=== PATIENT | female | born 1950 | race African-American/Black ===

== ENCOUNTER 2020-06-20 15:29 | Inpatient (IN) ==
[2020-06-20 16:40] LABS: Basophils # 0.1 10*3/uL (0.0-0.2); Basophils % 0.4 % (0.0-0.8); Eosinophils # 0.1 10*3/uL (0.0-0.87); Eosinophils % 0.2 % (0.00-10.9); Hematocrit 48.2 VOL% (35.7-47.0); Hemoglobin 14.6 GM/DL (12.0-16.0); Immature Granulocytes % 1.1 %; Immature Granulocytes Absolute 0.29 #; Lymphocytes # 2.5 10*3/uL (1.4-4.0); Lymphocytes % 9.8 % (21.3-54.2); Mean Corpuscular HGB Conc 30.3 GM/DL (32-36); Mean Corpuscular Volume 78.5 FL (87-102); Monocytes % 3.7 % (1.7-12.7); NRBC # 0.05 10*3/uL; Neutrophils % 84.8 % (38.7-73.9); Platelet Count 117 T/CUMM (130-400); Red Blood Count 6.14 MC/CUMM (3.8-5.5); Red Cell Distribution Width 18.8 % (9.3-17.3); White Blood Count 25.5 T/CUMM (4-12)
[2020-06-20 16:58] LABS: Anisocytosis 1+; Band Neutrophils 1 % (0-10); Lymphocytes 13 % (20-55); Segmented Neutrophils 85 % (50-85); Total Cells Counted 100
[2020-06-20 16:59] LABS: Hypochromasia 1+; Platelet Estimate Adequate; Polychromasia Few
[2020-06-20 17:03] LABS: Alanine Aminotransferase 27 U/L (13-56); Albumin 1.9 G/DL (3.4-5.0); Alkaline Phosphatase 66 U/L (45-117); Aspartate Amino Transferase 39 U/L (0-37); Blood Urea Nitrogen 41 MG/DL (7-18); Calcium 10.3 MG/DL (8.5-10.1); Estimated Glom Filtration Rate 39 ML/MIN; Glucose 445 MG/DL (74-106); Osmolality,Calculated 344.6 MOS/KG (273-304); Total Protein 8.2 G/DL (6.4-8.3)
[2020-06-20 17:24] LABS: Ferritin 222.1 ng/ml (8-252)
[2020-06-20] MEDS ORDERED: SODIUM CHLORIDE 0.9% 2,250 ML IV ONE (17:47)
[2020-06-20] MEDS ORDERED: LEVOFLOXACIN INJ 750 MG in PREMIX 1 EACH IV SCH (18:00)
[2020-06-20 18:36] LABS: Bilirubin,Urine Negative (Negative); Blood, Urine Small mg/dL (Negative); Glucose,Urine (UA) >=500 mg/dL (Negative); Ketones,Urine Negative (Negative); Nitrite,Urine Negative (Negative); Protein,Urine 100 MG/DL; RBC,Urine 2 /HPF (0-4); Urine Appearance CLEAR (Clear); Urine Color Yellow (Yellow); Urine Specific Gravity 1.024 (1.001-1.035); WBC,Urine 1 /HPF (0-6)
[2020-06-20 20:17] LABS: ABG Base Excess 3.1 MMOL/L (-2.5-2.5); ABG HCO3 26.9 MMOL/L (20-26); ABG PCO2 25.4 MM HG (35-48); ABG PH 7.575 (7.35-7.45)
[2020-06-20] MEDS ORDERED: hydrALAZINE 20 MG/1 ML VIAL IV PRN (20:31)
[2020-06-20] MEDS ORDERED: ONDANSETRON 4 MG/2 ML VIAL IV PRN (20:31)
[2020-06-20] MEDS ORDERED: ALBUTEROL 2.5 MG/3 ML NEB RESP TX PRN (20:31)
[2020-06-20] MEDS ORDERED: GLUCAGON 1 MG VIAL IM PRN (20:52)
[2020-06-20] MEDS ORDERED: DEXTROSE 50% 25 GM/50 ML VIAL IV PRN (20:52)
[2020-06-20] MEDS ORDERED: LINEZOLID INJ 600 MG in PREMIX 1 EACH IV SCH (21:30)
[2020-06-20] MEDS ORDERED: VANCOMYCIN INJ 1,000 MG in SODIUM CHLORIDE 0.9% 250 ML IV STA (22:28)
[2020-06-20] MEDS ORDERED: CEFEPIME 1,000 MG VIAL ONE (22:38)
[2020-06-20] MEDS: CEFEPIME 2,000 MG in SODIUM CHLORIDE 0.9% 100 ML IV SCH (23:00)
[2020-06-21 05:03] LABS: ABG Base Excess 0.4 MMOL/L (-2.5-2.5); ABG HCO3 24.7 MMOL/L (20-26); ABG Oxygen Saturation 93.1 % (95-100); ABG PCO2 25.8 MM HG (35-48); ABG PH 7.532 (7.35-7.45); ABG PO2 63.5 MM HG (80-95); ABG TCO2 18.8 MMOL/L (23-27); Allen Test Positive
[2020-06-21 05:06] LABS: Basophils # 0.1 10*3/uL (0.0-0.2); Basophils % 0.4 % (0.0-0.8); Hematocrit 45.4 VOL% (35.7-47.0); Hemoglobin 13.8 GM/DL (12.0-16.0); Immature Granulocytes % 0.9 %; Lymphocytes # 2.5 10*3/uL (1.4-4.0); Lymphocytes % 11.1 % (21.3-54.2); Mean Corpuscular HGB Conc 30.4 GM/DL (32-36); Mean Corpuscular Volume 80.1 FL (87-102); Monocytes % 3.9 % (1.7-12.7); NRBC # 0.03 10*3/uL; Neutrophils % 83.7 % (38.7-73.9); Red Blood Count 5.67 MC/CUMM (3.8-5.5); Red Cell Distribution Width 19.1 % (9.3-17.3); White Blood Count 22.4 T/CUMM (4-12)
[2020-06-21 05:15] LABS: Platelet Count 128 T/CUMM (130-400)
[2020-06-21 05:25] LABS: Band Neutrophils 4 % (0-10); Lymphocytes 11 % (20-55); Segmented Neutrophils 77 % (50-85); Total Cells Counted 100
[2020-06-21 05:26] LABS: Hypochromasia 1+; Microcytosis 1+
[2020-06-21 05:27] LABS: Platelet Estimate Adequate
[2020-06-21 05:59] LABS: Albumin 1.6 G/DL (3.4-5.0); Bilirubin,Total 1.5 MG/DL (0.2-1.0); Calcium 9.2 MG/DL (8.5-10.1); Osmolality,Calculated 350.3 MOS/KG (273-304); Total Protein 7.3 G/DL (6.4-8.3)
[2020-06-21] MEDS ORDERED: ACETAMINOPHEN 325 MG/10.15 ML UDCUP PO STA ×2 (06:21→06:23)
[2020-06-21] MEDS ORDERED: ACETAMINOPHEN 325 MG TABLET ONE (06:27)
[2020-06-21] MEDS ORDERED: ACETAMINOPHEN 325 MG TABLET PER TUBE ONE (06:30)
[2020-06-21] MEDS: SODIUM CHLORIDE 0.45% 1,000 ML IV SCH ×3 (07:27→10:20)
[2020-06-21] MEDS: INSULIN REGULAR 100 UNIT/ML SUBCUT SCH ×4 (07:33→20:27)
[2020-06-21] MEDS: CEFEPIME 2,000 MG in SODIUM CHLORIDE 0.9% 100 ML IV SCH ×3 (09:05→23:13)
[2020-06-21] MEDS ORDERED: POLYETHYLENE GLYCOL POWDER 17 GM PACK PO PRN (09:42)
[2020-06-21] MEDS ORDERED: POLYETHYLENE GLYCOL POWDER 17 GM PACK PEG PRN (13:04)
[2020-06-21] MEDS ORDERED: ACETAMINOPHEN 500 MG TABLET PEG PRN (13:04)
[2020-06-21] MEDS: LACTATED RINGERS 1,000 ML IV SCH (13:10)
[2020-06-21] MEDS: methylPREDNISolone SOD SUC 40 MG/1 ML VIAL IV SCH ×2 (14:39→20:58)
[2020-06-21] MEDS: FAMOTIDINE 20 MG TABLET PER TUBE SCH (14:40)
[2020-06-21] MEDS: carvediloL 25 MG TABLET PEG SCH (19:33)
[2020-06-21] MEDS: LEVOFLOXACIN INJ 250 MG in PREMIX 1 EACH IV SCH (19:38)
[2020-06-21] MEDS: ENOXAPARIN 30 MG/0.3 ML SYRINGE SUBCUT SCH (20:58)
[2020-06-22] MEDS: INSULIN REGULAR 100 UNIT/ML SUBCUT SCH ×8 (00:13→23:32)
[2020-06-22] MEDS: LACTATED RINGERS 1,000 ML IV SCH ×4 (02:19→20:55)
[2020-06-22 03:42] LABS: ABG Base Excess -0.6 MMOL/L (-2.5-2.5); ABG HCO3 23.9 MMOL/L (20-26); ABG Oxygen Saturation 94.9 % (95-100); ABG PCO2 33.2 MM HG (35-48); ABG PH 7.445 (7.35-7.45); ABG PO2 74.2 MM HG (80-95); ABG TCO2 20.3 MMOL/L (23-27); Allen Test Positive
[2020-06-22 04:26] LABS: Basophils % 0.2 % (0.0-0.8); Hematocrit 41.3 VOL% (35.7-47.0); Hemoglobin 12.5 GM/DL (12.0-16.0); Immature Granulocytes % 1.2 %; Immature Granulocytes Absolute 0.24 #; Lymphocytes # 1.6 10*3/uL (1.4-4.0); Lymphocytes % 8.1 % (21.3-54.2); Mean Corpuscular HGB Conc 30.3 GM/DL (32-36); Mean Corpuscular Volume 80.2 FL (87-102); Monocytes % 2.4 % (1.7-12.7); NRBC # 0.03 10*3/uL; Neutrophils % 88.1 % (38.7-73.9); Red Blood Count 5.15 MC/CUMM (3.8-5.5); White Blood Count 19.4 T/CUMM (4-12)
[2020-06-22 04:31] LABS: Platelet Count 74 T/CUMM (130-400)
[2020-06-22 05:17] LABS: Band Neutrophils 2 % (0-10); Calcium 9.8 MG/DL (8.5-10.1); Lymphocytes 10 % (20-55); Segmented Neutrophils 87 % (50-85); Total Cells Counted 100
[2020-06-22 05:18] LABS: Microcytosis Slight; Platelet Estimate Decreased
[2020-06-22] MEDS: methylPREDNISolone SOD SUC 40 MG/1 ML VIAL IV SCH ×3 (06:19→20:45)
[2020-06-22] MEDS: CEFEPIME 2,000 MG in SODIUM CHLORIDE 0.9% 100 ML IV SCH ×3 (07:21→23:02)
[2020-06-22] MEDS ORDERED: DEXTROSE 50% 25 GM/50 ML VIAL IV PRN (07:23)
[2020-06-22] MEDS: CHOLECALCIFEROL 1,000 UNIT TABLET PEG SCH (08:00)
[2020-06-22] MEDS: carvediloL 25 MG TABLET PEG SCH ×2 (08:52→17:09)
[2020-06-22] MEDS: LEVOTHYROXINE 88 MCG TABLET PEG SCH (08:55)
[2020-06-22] MEDS: FAMOTIDINE 20 MG TABLET PER TUBE SCH (08:55)
[2020-06-22] MEDS: LEVOFLOXACIN INJ 250 MG in PREMIX 1 EACH IV SCH (18:02)
[2020-06-22] MEDS ORDERED: SODIUM CHLOR 0.9% KCL 40 MEQ 40 MEQ/1,000 ML BAG IV SCH (19:00)
[2020-06-22] MEDS: ENOXAPARIN 30 MG/0.3 ML SYRINGE SUBCUT SCH (20:44)
[2020-06-22] MEDS: SODIUM CHLOR 0.45% KCL 20 MEQ 20 MEQ/1,000 ML BAG IV SCH (20:54)
[2020-06-23] MEDS: INSULIN REGULAR 100 UNIT/ML SUBCUT SCH ×5 (03:28→22:03)
[2020-06-23 04:55] LABS: Basophils % 0.2 % (0.0-0.8); Eosinophils % 0.1 % (0.00-10.9); Hematocrit 37.8 VOL% (35.7-47.0); Hemoglobin 11.4 GM/DL (12.0-16.0); Immature Granulocytes Absolute 0.16 #; Lymphocytes % 6.2 % (21.3-54.2); Mean Corpuscular HGB Conc 30.2 GM/DL (32-36); Mean Corpuscular Volume 80.4 FL (87-102); Monocytes % 3.2 % (1.7-12.7); NRBC # 0.06 10*3/uL; Neutrophils % 89.3 % (38.7-73.9); Red Cell Distribution Width 17.7 % (9.3-17.3); White Blood Count 16.8 T/CUMM (4-12)
[2020-06-23 05:03] LABS: Calcium 9.4 MG/DL (8.5-10.1); Osmolality,Calculated 343.5 MOS/KG (273-304)
[2020-06-23 05:05] LABS: Platelet Count 82 T/CUMM (130-400)
[2020-06-23 05:06] LABS: Hypochromasia 1+; Lymphocytes 4 % (20-55); Microcytosis 1+; Nucleated Red Blood Cells 1 (0-5); Platelet Estimate Decreased; Segmented Neutrophils 95 % (50-85); Total Cells Counted 100
[2020-06-23] MEDS: methylPREDNISolone SOD SUC 40 MG/1 ML VIAL IV SCH ×3 (05:56→22:03)
[2020-06-23] MEDS: CEFEPIME 2,000 MG in SODIUM CHLORIDE 0.9% 100 ML IV SCH ×2 (06:15→17:02)
[2020-06-23] MEDS: INSULIN GLARGINE 100 UNIT/ML SUBCUT SCH (08:49)
[2020-06-23] MEDS: LEVOTHYROXINE 88 MCG TABLET PEG SCH (08:50)
[2020-06-23] MEDS: ENOXAPARIN 40 MG/0.4 ML SYRINGE SUBCUT SCH (08:50)
[2020-06-23] MEDS: FAMOTIDINE 20 MG TABLET PER TUBE SCH (08:50)
[2020-06-23] MEDS: POTASSIUM CHLORIDE 20 MEQ/15 ML UDCUP PER TUBE SCH ×3 (08:50→16:35)
[2020-06-23] MEDS: CHOLECALCIFEROL 1,000 UNIT TABLET PEG SCH (08:50)
[2020-06-23] MEDS: LEVOFLOXACIN INJ 500 MG in PREMIX 1 EACH IV SCH (08:50)
[2020-06-23] MEDS: carvediloL 25 MG TABLET PEG SCH ×2 (08:57→18:21)
[2020-06-23] MEDS: SODIUM CHLOR 0.45% KCL 20 MEQ 20 MEQ/1,000 ML BAG IV SCH ×2 (09:09→15:40)
[2020-06-23] MEDS: CEFEPIME 1,000 MG in SODIUM CHLORIDE 0.9% 100 ML IV SCH ×2 (17:02→22:04)
[2020-06-24] MEDS: SODIUM CHLOR 0.45% KCL 20 MEQ 20 MEQ/1,000 ML BAG IV SCH ×2 (01:35→10:41)
[2020-06-24] MEDS: INSULIN REGULAR 100 UNIT/ML SUBCUT SCH ×5 (01:35→18:24)
[2020-06-24 05:50] LABS: Basophils % 0.1 % (0.0-0.8); Hematocrit 37.3 VOL% (35.7-47.0); Hemoglobin 11.2 GM/DL (12.0-16.0); Immature Granulocytes % 0.9 %; Immature Granulocytes Absolute 0.14 #; Lymphocytes # 0.8 10*3/uL (1.4-4.0); Mean Corpuscular Volume 80.4 FL (87-102); Monocytes % 4.1 % (1.7-12.7); NRBC # 0.05 10*3/uL; Neutrophils % 89.9 % (38.7-73.9); Platelet Count 78 T/CUMM (130-400); Red Blood Count 4.64 MC/CUMM (3.8-5.5); Red Cell Distribution Width 17.6 % (9.3-17.3)
[2020-06-24 05:58] LABS: Calcium 9.4 MG/DL (8.5-10.1); Osmolality,Calculated 333.9 MOS/KG (273-304)
[2020-06-24 05:59] LABS: Calcium 9.2 MG/DL (8.5-10.1); Osmolality,Calculated 336.7 MOS/KG (273-304)
[2020-06-24 06:15] LABS: Band Neutrophils 2 % (0-10); Lymphocytes 3 % (20-55); Platelet Estimate Decreased; Segmented Neutrophils 89 % (50-85); Total Cells Counted 100
[2020-06-24 06:16] LABS: Hypochromasia 1+; Microcytosis 1+
[2020-06-24] MEDS: CEFEPIME 1,000 MG in SODIUM CHLORIDE 0.9% 100 ML IV SCH ×3 (06:38→21:06)
[2020-06-24] MEDS: ENOXAPARIN 40 MG/0.4 ML SYRINGE SUBCUT SCH (10:30)
[2020-06-24] MEDS: methylPREDNISolone SOD SUC 40 MG/1 ML VIAL IV SCH (10:30)
[2020-06-24] MEDS: FAMOTIDINE 20 MG TABLET PER TUBE SCH (10:31)
[2020-06-24] MEDS: CHOLECALCIFEROL 1,000 UNIT TABLET PEG SCH (10:31)
[2020-06-24] MEDS: LEVOTHYROXINE 88 MCG TABLET PEG SCH (10:31)
[2020-06-24] MEDS: carvediloL 25 MG TABLET PEG SCH ×2 (10:31→18:24)
[2020-06-24] MEDS: LEVOFLOXACIN INJ 500 MG in PREMIX 1 EACH IV SCH (10:33)
[2020-06-24] MEDS: INSULIN GLARGINE 100 UNIT/ML SUBCUT SCH (10:41)
[2020-06-24] MEDS ORDERED: DEXTROSE 5% 1,000 ML IV SCH (11:00)
[2020-06-25] MEDS: INSULIN REGULAR 100 UNIT/ML SUBCUT SCH ×4 (02:00→17:27)
[2020-06-25] MEDS: CEFEPIME 1,000 MG in SODIUM CHLORIDE 0.9% 100 ML IV SCH ×2 (04:04→09:51)
[2020-06-25 06:45] LABS: Basophils % 0.3 % (0.0-0.8); Eosinophils # 0.1 10*3/uL (0.0-0.87); Eosinophils % 0.5 % (0.00-10.9); Hematocrit 39.4 VOL% (35.7-47.0); Hemoglobin 11.8 GM/DL (12.0-16.0); Immature Granulocytes % 2.2 %; Immature Granulocytes Absolute 0.29 #; Lymphocytes # 1.2 10*3/uL (1.4-4.0); Lymphocytes % 9.4 % (21.3-54.2); Mean Corpuscular HGB Conc 29.9 GM/DL (32-36); Mean Corpuscular Volume 79.6 FL (87-102); NRBC # 0.08 10*3/uL; Neutrophils % 83.6 % (38.7-73.9); Platelet Count 45 T/CUMM (130-400); Red Blood Count 4.95 MC/CUMM (3.8-5.5); Red Cell Distribution Width 17.8 % (9.3-17.3); White Blood Count 13.2 T/CUMM (4-12)
[2020-06-25 06:57] LABS: Calcium 9.5 MG/DL (8.5-10.1)
[2020-06-25 07:11] LABS: Anisocytosis Slight; Band Neutrophils 8 % (0-10); Lymphocytes 14 % (20-55); Metamyelocytes 2 %; Myelocytes 1 %; Nucleated Red Blood Cells 2 (0-5); Platelet Estimate Decreased; Segmented Neutrophils 72 % (50-85); Total Cells Counted 100
[2020-06-25 07:12] LABS: Hypochromasia Slight
[2020-06-25] MEDS: INSULIN GLARGINE 100 UNIT/ML SUBCUT SCH (09:48)
[2020-06-25] MEDS: ENOXAPARIN 40 MG/0.4 ML SYRINGE SUBCUT SCH (09:49)
[2020-06-25] MEDS: predniSONE 20 MG TABLET PO SCH (09:50)
[2020-06-25] MEDS: CHOLECALCIFEROL 1,000 UNIT TABLET PEG SCH (09:50)
[2020-06-25] MEDS: carvediloL 25 MG TABLET PEG SCH ×2 (09:50→17:26)
[2020-06-25] MEDS: LEVOTHYROXINE 88 MCG TABLET PEG SCH (09:50)
[2020-06-25] MEDS: FAMOTIDINE 20 MG TABLET PER TUBE SCH (09:50)
[2020-06-25] MEDS: LEVOFLOXACIN INJ 500 MG in PREMIX 1 EACH IV SCH (12:44)
[2020-06-26] MEDS: INSULIN REGULAR 100 UNIT/ML SUBCUT SCH ×3 (00:09→11:45)
[2020-06-26 05:31] LABS: Basophils % 0.4 % (0.0-0.8); Eosinophils # 0.1 10*3/uL (0.0-0.87); Eosinophils % 0.7 % (0.00-10.9); Hematocrit 35.6 VOL% (35.7-47.0); Hemoglobin 10.8 GM/DL (12.0-16.0); Immature Granulocytes % 3.2 %; Immature Granulocytes Absolute 0.34 #; Lymphocytes # 1.7 10*3/uL (1.4-4.0); Lymphocytes % 15.6 % (21.3-54.2); Mean Corpuscular HGB Conc 30.3 GM/DL (32-36); Mean Corpuscular Volume 78.8 FL (87-102); Monocytes % 5.7 % (1.7-12.7); NRBC # 0.04 10*3/uL; Neutrophils % 74.4 % (38.7-73.9); Red Blood Count 4.52 MC/CUMM (3.8-5.5); Red Cell Distribution Width 16.9 % (9.3-17.3); White Blood Count 10.6 T/CUMM (4-12)
[2020-06-26 05:32] LABS: Platelet Count 74 T/CUMM (130-400)
[2020-06-26 05:48] LABS: Calcium 9.3 MG/DL (8.5-10.1); Osmolality,Calculated 309.3 MOS/KG (273-304)
[2020-06-26 06:03] LABS: Band Neutrophils 2 % (0-10); Lymphocytes 12 % (20-55); Metamyelocytes 1 %; Myelocytes 2 %; Platelet Estimate Decreased; Segmented Neutrophils 79 % (50-85); Total Cells Counted 100
[2020-06-26 06:04] LABS: Hypochromasia Slight; Microcytosis 1+
[2020-06-26] MEDS: ENOXAPARIN 40 MG/0.4 ML SYRINGE SUBCUT SCH (08:48)
[2020-06-26] MEDS: INSULIN GLARGINE 100 UNIT/ML SUBCUT SCH (08:49)
[2020-06-26] MEDS: carvediloL 25 MG TABLET PEG SCH (08:49)
[2020-06-26] MEDS: predniSONE 20 MG TABLET PO SCH (08:49)
[2020-06-26] MEDS: LEVOTHYROXINE 88 MCG TABLET PEG SCH (08:49)
[2020-06-26] MEDS: CHOLECALCIFEROL 1,000 UNIT TABLET PEG SCH (08:49)
[2020-06-26] MEDS: FAMOTIDINE 20 MG TABLET PER TUBE SCH (08:49)
[2020-06-26 11:34] VITALS: BP 122/56
== END 2020-06-26 15:09 | DRG 871 ==
LOC: EDBD → EDUNIT# → N.ED 15:29 → N.EDINP 20:31 → SUATTDRO 20:31 → N.ICU 06-22 11:50 → N.5E 06-23 15:20
PROVIDERS: ADMIT Internal Medicine; ATTEND Internal Medicine

== ENCOUNTER 2020-07-06 03:47 | Inpatient (IN) ==
[2020-07-06] MEDS ORDERED: ROCURONIUM 100 MG/10 ML VIAL IV STA (03:54)
[2020-07-06] MEDS ORDERED: ETOMIDATE 20 MG/10 ML VIAL IV STA (03:54)
[2020-07-06] MEDS ORDERED: NOREPINEPHRINE 4 MG/4 ML VIAL IV ONE ×3 (03:59→17:07)
[2020-07-06] MEDS: NOREPINEPHRINE 8 MG in SODIUM CHLORIDE 0.9% 242 ML IV PRN (04:10)
[2020-07-06] MEDS ORDERED: SODIUM CHLORIDE 0.9% 2,000 ML IV STA (04:19)
[2020-07-06] MEDS ORDERED: SODIUM CHLORIDE 0.9% 1,000 ML IV STA ×2 (04:19→06:33)
[2020-07-06] MEDS ORDERED: LEVOFLOXACIN INJ 500 MG in PREMIX 1 EACH IV STA (04:19)
[2020-07-06 04:50] LABS: Alanine Aminotransferase 26 U/L (13-56); Albumin 1.3 G/DL (3.4-5.0); Alkaline Phosphatase 54 U/L (45-117); Aspartate Amino Transferase 19 U/L (0-37); Bacteria,Urine Occasional /HPF (Few); Bilirubin,Urine Negative (Negative); Blood Urea Nitrogen 41 MG/DL (7-18); Blood, Urine Negative (Negative); Calcium 7.7 MG/DL (8.5-10.1); Carbon Dioxide 24 MMOL/L (21-32); Estimated Glom Filtration Rate 64 ML/MIN; Glucose 353 MG/DL (74-106); Glucose,Urine (UA) >=500 mg/dL (Negative); Ketones,Urine Negative (Negative); Mucus,Urine Occasional /LPF (Occasional); Nitrite,Urine Negative (Negative); Osmolality,Calculated 324.7 MOS/KG (273-304); Protein,Urine 30 MG/DL; RBC,Urine 14 /HPF (0-4); Sodium 152 MMOL/L (136-145); Squamous Epithelial Cell,Urine Occasional /HPF (0-10); Total Protein 5.3 G/DL (6.4-8.3); Urine Appearance CLEAR (Clear); Urine Color Yellow (Yellow); WBC,Urine 1 /HPF (0-6)
[2020-07-06 04:52] LABS: ABG Base Excess -3.1 MMOL/L (-2.5-2.5); ABG HCO3 23.4 MMOL/L (20-26); ABG Oxygen Saturation 94.3 % (95-100); ABG PCO2 47.9 MM HG (35-48); ABG PH 7.306 (7.35-7.45); ABG PO2 83.5 MM HG (80-95); ABG TCO2 24.8 MMOL/L (23-27)
[2020-07-06] MEDS ORDERED: VANCOMYCIN INJ 1,000 MG in SODIUM CHLORIDE 0.9% 250 ML IV STA (05:06)
[2020-07-06 05:09] LABS: Basophils % 0.2 % (0.0-0.8); Eosinophils % 0.2 % (0.00-10.9); Hematocrit 36.5 VOL% (35.7-47.0); Hemoglobin 10.7 GM/DL (12.0-16.0); Immature Granulocytes % 0.9 %; Lymphocytes # 1.2 10*3/uL (1.4-4.0); Lymphocytes % 10.7 % (21.3-54.2); Mean Corpuscular HGB Conc 29.3 GM/DL (32-36); Mean Corpuscular Volume 83.3 FL (87-102); Monocytes % 5.5 % (1.7-12.7); NRBC # 0.07 10*3/uL; Neutrophils % 82.5 % (38.7-73.9); Platelet Count 72 T/CUMM (130-400); Red Blood Count 4.38 MC/CUMM (3.8-5.5); Red Cell Distribution Width 19.2 % (9.3-17.3); White Blood Count 11.5 T/CUMM (4-12)
[2020-07-06 05:35] LABS: Band Neutrophils 12 % (0-10); Eosinophils 1 % (0-10); Lymphocytes 5 % (20-55); Metamyelocytes 4 %; Myelocytes 1 %; Nucleated Red Blood Cells 2 (0-5); Segmented Neutrophils 74 % (50-85); Total Cells Counted 100
[2020-07-06 05:36] LABS: Hypochromasia 1+; Microcytosis 1+; Polychromasia Slight
[2020-07-06 05:37] LABS: Platelet Estimate Decreased
[2020-07-06] MEDS ORDERED: NICOTINE 21 MG/24 HR PATCH TRANSDERM PRN (05:41)
[2020-07-06] MEDS ORDERED: ONDANSETRON 4 MG/2 ML VIAL IV PRN (05:41)
[2020-07-06] MEDS ORDERED: ALBUTEROL 2.5 MG/3 ML NEB RESP TX PRN (05:41)
[2020-07-06] MEDS ORDERED: GLUCAGON 1 MG VIAL IM PRN (05:46)
[2020-07-06] MEDS ORDERED: DEXTROSE 50% 25 GM/50 ML VIAL IV PRN (05:46)
[2020-07-06] MEDS ORDERED: MIDAZOLAM 2 MG/2 ML VIAL ONE (06:01)
[2020-07-06] MEDS ORDERED: MIDAZOLAM 2 MG/2 ML VIAL IV STA (06:03)
[2020-07-06] MEDS: PANTOPRAZOLE 40 MG VIAL IV SCH (06:22)
[2020-07-06] MEDS: INSULIN REGULAR 100 UNIT/ML SUBCUT SCH ×3 (06:22→20:58)
[2020-07-06] MEDS: MIDAZOLAM 100 MG in SODIUM CHLORIDE 0.9% 80 ML IV PRN (06:27)
[2020-07-06] MEDS: SODIUM CHLORIDE 0.45% 1,000 ML IV SCH ×2 (08:00→20:11)
[2020-07-06] MEDS: ENOXAPARIN 40 MG/0.4 ML SYRINGE SUBCUT SCH (09:00)
[2020-07-06] MEDS: VANCOMYCIN INJ 1,250 MG in SODIUM CHLORIDE 0.9% 250 ML IV SCH ×2 (09:00→22:13)
[2020-07-06 12:45] LABS: Albumin 1.3 G/DL (3.4-5.0); Calcium 8.1 MG/DL (8.5-10.1); Osmolality,Calculated 333.2 MOS/KG (273-304); Potassium 3.8 MMOL/L (3.5-5.1); Total Protein 5.5 G/DL (6.4-8.3)
[2020-07-06] MEDS ORDERED: SODIUM CHLORIDE 0.9% 500 ML IV ONE (14:05)
[2020-07-06] MEDS ORDERED: SODIUM CHLORIDE 0.9% 1,000 ML IV ONE (20:42)
[2020-07-07] MEDS: INSULIN REGULAR 100 UNIT/ML SUBCUT SCH ×5 (00:31→18:00)
[2020-07-07] MEDS: NOREPINEPHRINE 8 MG in SODIUM CHLORIDE 0.9% 242 ML IV PRN ×4 (01:36→23:17)
[2020-07-07 04:21] LABS: ABG Base Excess -2.5 MMOL/L (-2.5-2.5); ABG HCO3 22.3 MMOL/L (20-26); ABG Oxygen Saturation 99.7 % (95-100); ABG PH 7.445 (7.35-7.45); ABG TCO2 18.5 MMOL/L (23-27)
[2020-07-07 04:29] LABS: Basophils % 0.3 % (0.0-0.8); Eosinophils % 0.2 % (0.00-10.9); Hematocrit 31.9 VOL% (35.7-47.0); Hemoglobin 9.4 GM/DL (12.0-16.0); Immature Granulocytes % 0.5 %; Immature Granulocytes Absolute 0.06 #; Lymphocytes # 1.8 10*3/uL (1.4-4.0); Mean Corpuscular HGB Conc 29.5 GM/DL (32-36); Mean Corpuscular Volume 83.5 FL (87-102); Mean Platelet Volume 13.5 FL (9.6-12.0); Monocytes % 3.4 % (1.7-12.7); NRBC # 0.02 10*3/uL; Neutrophils % 81.6 % (38.7-73.9); Platelet Count 63 T/CUMM (130-400); Red Blood Count 3.82 MC/CUMM (3.8-5.5); Red Cell Distribution Width 18.6 % (9.3-17.3); White Blood Count 12.8 T/CUMM (4-12)
[2020-07-07 04:45] LABS: Albumin 1.2 G/DL (3.4-5.0); Bilirubin,Total 0.9 MG/DL (0.2-1.0); Calcium 8.4 MG/DL (8.5-10.1); Potassium 3.1 MMOL/L (3.5-5.1); Total Protein 5.5 G/DL (6.4-8.3)
[2020-07-07 05:02] LABS: Band Neutrophils 11 % (0-10); Hypochromasia 1+; Lymphocytes 19 % (20-55); Metamyelocytes 2 %; Myelocytes 2 %; Nucleated Red Blood Cells 3 (0-5); Segmented Neutrophils 63 % (50-85); Total Cells Counted 100
[2020-07-07 05:03] LABS: Microcytosis 1+; Platelet Estimate Decreased; Polychromasia Slight
[2020-07-07] MEDS: POTASSIUM CHLORIDE RIDER 20 MEQ in PREMIX 1 EACH IV PRN ×2 (05:24→05:54)
[2020-07-07] MEDS: PANTOPRAZOLE 40 MG VIAL IV SCH (05:45)
[2020-07-07] MEDS: SODIUM CHLORIDE 0.45% 1,000 ML IV SCH ×2 (05:47→16:29)
[2020-07-07] MEDS: LEVOFLOXACIN INJ 500 MG in PREMIX 1 EACH IV SCH (05:50)
[2020-07-07] MEDS: VANCOMYCIN INJ 1,250 MG in SODIUM CHLORIDE 0.9% 250 ML IV SCH ×2 (08:11→21:14)
[2020-07-07] MEDS: ENOXAPARIN 40 MG/0.4 ML SYRINGE SUBCUT SCH (08:11)
[2020-07-07] MEDS ORDERED: DEXTROSE 50% 25 GM/50 ML VIAL IV PRN (09:55)
[2020-07-07] MEDS ORDERED: GLUCAGON 1 MG VIAL IM PRN (09:55)
[2020-07-07] MEDS: POTASSIUM CHLORIDE 20 MEQ/15 ML UDCUP PER TUBE SCH ×3 (11:01→18:04)
[2020-07-08] MEDS: INSULIN REGULAR 100 UNIT/ML SUBCUT SCH ×5 (00:07→23:54)
[2020-07-08] MEDS: SODIUM CHLORIDE 0.45% 1,000 ML IV SCH ×6 (03:06→21:34)
[2020-07-08 03:31] LABS: ABG HCO3 20.2 MMOL/L (20-26); ABG PCO2 27.6 MM HG (35-48); ABG PH 7.432 (7.35-7.45); ABG PO2 93.1 MM HG (80-95); ABG TCO2 17.1 MMOL/L (23-27)
[2020-07-08] MEDS: NOREPINEPHRINE 8 MG in SODIUM CHLORIDE 0.9% 242 ML IV PRN ×2 (05:01→17:36)
[2020-07-08 05:25] LABS: Basophils % 0.2 % (0.0-0.8); Eosinophils % 0.1 % (0.00-10.9); Hematocrit 27.7 VOL% (35.7-47.0); Hemoglobin 8.3 GM/DL (12.0-16.0); Immature Granulocytes % 1.1 %; Immature Granulocytes Absolute 0.12 #; Lymphocytes # 0.9 10*3/uL (1.4-4.0); Lymphocytes % 8.2 % (21.3-54.2); Mean Corpuscular Volume 82.7 FL (87-102); Monocytes % 3.3 % (1.7-12.7); NRBC # 0.05 10*3/uL; Neutrophils % 87.1 % (38.7-73.9); Platelet Count 60 T/CUMM (130-400); Red Blood Count 3.35 MC/CUMM (3.8-5.5); Red Cell Distribution Width 18.6 % (9.3-17.3); White Blood Count 10.6 T/CUMM (4-12)
[2020-07-08 05:38] LABS: Calcium 8.7 MG/DL (8.5-10.1); Osmolality,Calculated 309.6 MOS/KG (273-304); Potassium 3.3 MMOL/L (3.5-5.1)
[2020-07-08 05:44] LABS: Band Neutrophils 2 % (0-10); Hypochromasia 1+; Lymphocytes 6 % (20-55); Microcytosis 1+; Platelet Estimate Decreased; Segmented Neutrophils 91 % (50-85); Total Cells Counted 100
[2020-07-08] MEDS: PANTOPRAZOLE 40 MG VIAL IV SCH (05:47)
[2020-07-08] MEDS: LEVOFLOXACIN INJ 500 MG in PREMIX 1 EACH IV SCH (05:50)
[2020-07-08] MEDS: POTASSIUM CHLORIDE RIDER 20 MEQ in PREMIX 1 EACH IV PRN ×2 (06:11→06:45)
[2020-07-08] MEDS: ENOXAPARIN 40 MG/0.4 ML SYRINGE SUBCUT SCH (08:28)
[2020-07-08] MEDS: VANCOMYCIN INJ 1,250 MG in SODIUM CHLORIDE 0.9% 250 ML IV SCH ×2 (08:31→21:33)
[2020-07-08] MEDS: MIDAZOLAM 100 MG in SODIUM CHLORIDE 0.9% 80 ML IV PRN (12:30)
[2020-07-08] MEDS ORDERED: SODIUM CHLORIDE 0.45% 500 ML IV ONE (17:24)
[2020-07-09] MEDS: NOREPINEPHRINE 8 MG in SODIUM CHLORIDE 0.9% 242 ML IV PRN ×2 (01:33→08:31)
[2020-07-09 04:46] LABS: Allen Test Positive; Pt O2 Delivery Device Ventilator
[2020-07-09 04:50] LABS: ABG Base Excess -7.7 MMOL/L (-2.5-2.5); ABG HCO3 18.1 MMOL/L (20-26); ABG Oxygen Saturation 95.8 % (95-100); ABG PCO2 24.1 MM HG (35-48); ABG PH 7.419 (7.35-7.45); ABG PO2 75.8 MM HG (80-95); ABG TCO2 14.3 MMOL/L (23-27)
[2020-07-09 05:09] LABS: Basophils % 0.2 % (0.0-0.8); Eosinophils % 0.2 % (0.00-10.9); Hemoglobin 7.2 GM/DL (12.0-16.0); Immature Granulocytes % 0.9 %; Immature Granulocytes Absolute 0.05 #; Lymphocytes # 0.6 10*3/uL (1.4-4.0); Lymphocytes % 10.8 % (21.3-54.2); Mean Corpuscular Volume 81.9 FL (87-102); NRBC # 0.13 10*3/uL; Neutrophils % 83.9 % (38.7-73.9); Red Blood Count 2.93 MC/CUMM (3.8-5.5); Red Cell Distribution Width 18.2 % (9.3-17.3); White Blood Count 5.8 T/CUMM (4-12)
[2020-07-09 05:10] LABS: Platelet Count 51 T/CUMM (130-400)
[2020-07-09 05:26] LABS: Calcium 8.7 MG/DL (8.5-10.1); Osmolality,Calculated 302.4 MOS/KG (273-304); Potassium 3.6 MMOL/L (3.5-5.1)
[2020-07-09 05:29] LABS: Band Neutrophils 5 % (0-10); Hypochromasia 1+; Lymphocytes 16 % (20-55); Metamyelocytes 1 %; Microcytosis 1+; Nucleated Red Blood Cells 4 (0-5); Segmented Neutrophils 73 % (50-85); Total Cells Counted 100
[2020-07-09 05:30] LABS: Platelet Estimate Decreased
[2020-07-09] MEDS: SODIUM CHLORIDE 0.45% 1,000 ML IV SCH ×2 (05:57→09:43)
[2020-07-09] MEDS: PANTOPRAZOLE 40 MG VIAL IV SCH (06:25)
[2020-07-09] MEDS: INSULIN REGULAR 100 UNIT/ML SUBCUT SCH ×4 (06:27→23:53)
[2020-07-09] MEDS: LEVOFLOXACIN INJ 500 MG in PREMIX 1 EACH IV SCH (06:27)
[2020-07-09] MEDS: POTASSIUM CHLORIDE RIDER 20 MEQ in PREMIX 1 EACH IV PRN (06:28)
[2020-07-09] MEDS ORDERED: SODIUM CHLORIDE 0.9% 1,000 ML IV PRN (09:16)
[2020-07-09] MEDS ORDERED: SODIUM CHLORIDE 0.45% 1,000 ML IV ONE (09:25)
[2020-07-09] MEDS ORDERED: SODIUM BICARBONATE 50 MEQ/50 ML VIAL IV ONE (09:30)
[2020-07-09] MEDS: ENOXAPARIN 40 MG/0.4 ML SYRINGE SUBCUT SCH (09:59)
[2020-07-09] MEDS: VANCOMYCIN INJ 1,250 MG in SODIUM CHLORIDE 0.9% 250 ML IV SCH ×2 (09:59→20:48)
[2020-07-09] MEDS: INSULIN GLARGINE 100 UNIT/ML SUBCUT SCH ×2 (09:59→20:48)
[2020-07-09] MEDS: FAMOTIDINE 20 MG/2 ML VIAL IV SCH ×2 (10:00→20:45)
[2020-07-09] MEDS: NOREPINEPHRINE 16 MG in SODIUM CHLORIDE 0.9% 234 ML IV PRN ×2 (12:53→22:07)
[2020-07-09] MEDS ORDERED: FUROSEMIDE 40 MG/4 ML VIAL IV ONE (14:40)
[2020-07-09] MEDS: carvediloL 12.5 MG TABLET PO SCH ×2 (14:54→22:43)
[2020-07-09] MEDS ORDERED: cefTRIAXone 1,000 MG in SYRINGE 1 EACH IV SCH (18:00)
[2020-07-10 04:18] LABS: Allen Test Positive; Pt O2 Delivery Device Ventilator
[2020-07-10 04:19] LABS: ABG Base Excess -8.7 MMOL/L (-2.5-2.5); ABG HCO3 17.4 MMOL/L (20-26); ABG Oxygen Saturation 98.3 % (95-100); ABG PCO2 28.9 MM HG (35-48); ABG PH 7.347 (7.35-7.45); ABG TCO2 14.5 MMOL/L (23-27)
[2020-07-10 04:24] LABS: Basophils % 0.1 % (0.0-0.8); Eosinophils % 0.1 % (0.00-10.9); Hematocrit 31.4 VOL% (35.7-47.0); Lymphocytes # 0.5 10*3/uL (1.4-4.0); Lymphocytes % 5.1 % (21.3-54.2); Mean Corpuscular HGB Conc 31.2 GM/DL (32-36); Mean Corpuscular Volume 84.2 FL (87-102); Monocytes % 2.1 % (1.7-12.7); NRBC # 0.13 10*3/uL; Neutrophils % 91.6 % (38.7-73.9); Red Cell Distribution Width 18.6 % (9.3-17.3)
[2020-07-10 04:34] LABS: Platelet Count 38 T/CUMM (130-400)
[2020-07-10 04:35] LABS: Hemoglobin 9.8 GM/DL (12.0-16.0); Red Blood Count 3.73 MC/CUMM (3.8-5.5); White Blood Count 10.3 T/CUMM (4-12)
[2020-07-10 04:42] LABS: Calcium 8.8 MG/DL (8.5-10.1); Osmolality,Calculated 304.4 MOS/KG (273-304); Potassium 3.2 MMOL/L (3.5-5.1)
[2020-07-10 04:46] LABS: Band Neutrophils 7 % (0-10); Lymphocytes 8 % (20-55); Metamyelocytes 1 %; Myelocytes 2 %; Nucleated Red Blood Cells 4 (0-5); Segmented Neutrophils 76 % (50-85)
[2020-07-10 04:47] LABS: Hypochromasia Slight; Microcytosis Slight; Platelet Estimate Decreased; Total Cells Counted 100
[2020-07-10] MEDS: INSULIN REGULAR 100 UNIT/ML SUBCUT SCH ×3 (05:28→17:52)
[2020-07-10] MEDS: POTASSIUM CHLORIDE RIDER 20 MEQ in PREMIX 1 EACH IV PRN ×3 (05:28→12:31)
[2020-07-10] MEDS: NOREPINEPHRINE 16 MG in SODIUM CHLORIDE 0.9% 234 ML IV PRN ×2 (06:21→16:51)
[2020-07-10] MEDS ORDERED: SODIUM BICARBONATE 50 MEQ/50 ML VIAL IV ONE (10:08)
[2020-07-10] MEDS: carvediloL 12.5 MG TABLET PO SCH ×2 (10:25→21:45)
[2020-07-10] MEDS: FONDAPARINUX 2.5 MG/0.5 ML SYRINGE SUBCUT SCH (10:33)
[2020-07-10] MEDS: FAMOTIDINE 20 MG/2 ML VIAL IV SCH ×2 (10:34→21:50)
[2020-07-10] MEDS: INSULIN GLARGINE 100 UNIT/ML SUBCUT SCH ×2 (10:36→21:09)
[2020-07-10] MEDS: VANCOMYCIN INJ 1,250 MG in SODIUM CHLORIDE 0.9% 250 ML IV SCH ×2 (10:39→22:08)
[2020-07-10] MEDS: SODIUM BICARB INJ 150 MEQ in STERILE WATER INJ 850 ML IV SCH (11:35)
[2020-07-10] MEDS ORDERED: LACTATED RINGERS 1,000 ML IV ONE (14:00)
[2020-07-10] MEDS: metroNIDAZOLE INJ 500 MG in PREMIX 1 EACH IV SCH ×2 (15:24→21:45)
[2020-07-10] MEDS: AZITHROMYCIN INJ 500 MG in SODIUM CHLORIDE 0.9% 250 ML IV SCH (15:24)
[2020-07-10 22:03] LABS: Albumin 0.8 G/DL (3.4-5.0); Bilirubin,Total 2.4 MG/DL (0.2-1.0); Calcium 9.2 MG/DL (8.5-10.1); Osmolality,Calculated 306.3 MOS/KG (273-304); Potassium 4.1 MMOL/L (3.5-5.1); Total Protein 5.2 G/DL (6.4-8.3)
[2020-07-11] MEDS: INSULIN REGULAR 100 UNIT/ML SUBCUT SCH ×4 (01:01→18:19)
[2020-07-11 03:42] LABS: ABG Base Excess -5.3 MMOL/L (-2.5-2.5); ABG HCO3 17.7 MMOL/L (20-26); ABG Oxygen Saturation 93.5 % (95-100); ABG PCO2 26.9 MM HG (35-48); ABG PH 7.437 (7.35-7.45); ABG PO2 65.2 MM HG (80-95); ABG TCO2 18.6 MMOL/L (23-27); Allen Test Positive; Pt O2 Delivery Device Ventilator
[2020-07-11 04:00] LABS: Basophils # 0.1 10*3/uL (0.0-0.2); Basophils % 0.6 % (0.0-0.8); Eosinophils % 0.2 % (0.00-10.9); Hematocrit 30.6 VOL% (35.7-47.0); Hemoglobin 9.7 GM/DL (12.0-16.0); Immature Granulocytes % 2.2 %; Immature Granulocytes Absolute 0.28 #; Lymphocytes # 0.7 10*3/uL (1.4-4.0); Lymphocytes % 5.4 % (21.3-54.2); Mean Corpuscular HGB Conc 31.7 GM/DL (32-36); Mean Corpuscular Volume 83.4 FL (87-102); Monocytes % 1.5 % (1.7-12.7); NRBC # 0.16 10*3/uL; Neutrophils % 90.1 % (38.7-73.9); Red Blood Count 3.67 MC/CUMM (3.8-5.5); Red Cell Distribution Width 19.4 % (9.3-17.3); White Blood Count 12.7 T/CUMM (4-12)
[2020-07-11] MEDS: NOREPINEPHRINE 16 MG in SODIUM CHLORIDE 0.9% 234 ML IV PRN ×2 (04:01→15:55)
[2020-07-11] MEDS: metroNIDAZOLE INJ 500 MG in PREMIX 1 EACH IV SCH ×3 (04:03→21:33)
[2020-07-11 04:05] LABS: Platelet Count 42 T/CUMM (130-400)
[2020-07-11 04:19] LABS: Albumin 0.8 G/DL (3.4-5.0); Bilirubin,Total 2.4 MG/DL (0.2-1.0); Calcium 9.1 MG/DL (8.5-10.1); Osmolality,Calculated 303.4 MOS/KG (273-304); Potassium 3.8 MMOL/L (3.5-5.1); Total Protein 5.5 G/DL (6.4-8.3)
[2020-07-11 04:21] LABS: Band Neutrophils 3 % (0-10); Hypochromasia 1+; Lymphocytes 8 % (20-55); Microcytosis 1+; Nucleated Red Blood Cells 5 (0-5); Platelet Estimate Decreased; Segmented Neutrophils 85 % (50-85); Total Cells Counted 100
[2020-07-11] MEDS: SODIUM BICARB INJ 150 MEQ in STERILE WATER INJ 850 ML IV SCH ×3 (06:07→21:00)
[2020-07-11] MEDS: POTASSIUM CHLORIDE RIDER 20 MEQ in PREMIX 1 EACH IV PRN (07:13)
[2020-07-11] MEDS ORDERED: SODIUM BICARBONATE 50 MEQ/50 ML VIAL IV ONE (08:41)
[2020-07-11] MEDS: VANCOMYCIN INJ 1,250 MG in SODIUM CHLORIDE 0.9% 250 ML IV SCH (11:06)
[2020-07-11] MEDS: INSULIN GLARGINE 100 UNIT/ML SUBCUT SCH ×2 (11:18→21:34)
[2020-07-11] MEDS: ALBUMIN 25% 25 GM in PREMIX 1 EACH IV SCH ×2 (11:18→17:21)
[2020-07-11] MEDS: FONDAPARINUX 2.5 MG/0.5 ML SYRINGE SUBCUT SCH (11:19)
[2020-07-11] MEDS: carvediloL 12.5 MG TABLET PO SCH ×2 (11:19→11:31)
[2020-07-11] MEDS: FAMOTIDINE 20 MG/2 ML VIAL IV SCH ×2 (11:19→21:34)
[2020-07-11] MEDS ORDERED: PHENYLEPHRINE DRIP 40 MG/250 ML PREMIX IV ONE (12:19)
[2020-07-11] MEDS ORDERED: PHENYLEPHRINE DRIP 40 MG/250 ML PREMIX IV PRN (12:20)
[2020-07-11] MEDS: AZITHROMYCIN INJ 500 MG in SODIUM CHLORIDE 0.9% 250 ML IV SCH (12:59)
[2020-07-11] MEDS: cefTRIAXone 1,000 MG in SYRINGE 1 EACH IV SCH (18:49)
[2020-07-12] MEDS: SODIUM BICARB INJ 150 MEQ in STERILE WATER INJ 850 ML IV SCH ×3 (00:44→08:41)
[2020-07-12] MEDS: INSULIN REGULAR 100 UNIT/ML SUBCUT SCH ×4 (00:58→17:22)
[2020-07-12] MEDS: ALBUMIN 25% 25 GM in PREMIX 1 EACH IV SCH ×3 (00:58→16:08)
[2020-07-12] MEDS: NOREPINEPHRINE 16 MG in SODIUM CHLORIDE 0.9% 234 ML IV PRN (03:17)
[2020-07-12 03:36] LABS: ABG Base Excess 4.8 MMOL/L (-2.5-2.5); ABG HCO3 28.8 MMOL/L (20-26); ABG Oxygen Saturation 98.5 % (95-100); ABG PCO2 34.1 MM HG (35-48); ABG PH 7.519 (7.35-7.45); ABG PO2 98.8 MM HG (80-95); ABG TCO2 25.8 MMOL/L (23-27)
[2020-07-12 03:38] LABS: Allen Test Positive; Pt O2 Delivery Device Ventilator
[2020-07-12] MEDS: metroNIDAZOLE INJ 500 MG in PREMIX 1 EACH IV SCH ×3 (04:32→21:43)
[2020-07-12 05:06] LABS: Basophils % 0.2 % (0.0-0.8); Eosinophils % 0.1 % (0.00-10.9); Hematocrit 23.3 VOL% (35.7-47.0); Immature Granulocytes % 6.7 %; Immature Granulocytes Absolute 0.71 #; Lymphocytes # 0.7 10*3/uL (1.4-4.0); Lymphocytes % 6.8 % (21.3-54.2); Mean Corpuscular Volume 80.3 FL (87-102); Monocytes % 1.7 % (1.7-12.7); NRBC # 0.14 10*3/uL; Neutrophils % 84.5 % (38.7-73.9); Red Cell Distribution Width 18.6 % (9.3-17.3); White Blood Count 10.5 T/CUMM (4-12)
[2020-07-12 05:15] LABS: Hemoglobin 7.7 GM/DL (12.0-16.0); Platelet Count 40 T/CUMM (130-400)
[2020-07-12 05:22] LABS: Albumin 1.8 G/DL (3.4-5.0); Bilirubin,Total 3.3 MG/DL (0.2-1.0); Calcium 8.6 MG/DL (8.5-10.1); Calcium 8.7 MG/DL (8.5-10.1); Osmolality,Calculated 308.9 MOS/KG (273-304); Osmolality,Calculated 310.7 MOS/KG (273-304); Potassium 2.6 MMOL/L (3.5-5.1); Total Protein 5.2 G/DL (6.4-8.3)
[2020-07-12] MEDS: POTASSIUM CHLORIDE RIDER 20 MEQ in PREMIX 1 EACH IV PRN ×2 (07:13→09:17)
[2020-07-12 07:30] LABS: Band Neutrophils 6 % (0-10); Hypochromasia 1+; Lymphocytes 7 % (20-55); Microcytosis 1+; Nucleated Red Blood Cells 2 (0-5); Segmented Neutrophils 86 % (50-85); Total Cells Counted 100
[2020-07-12 07:31] LABS: Platelet Estimate Decreased
[2020-07-12] MEDS: FONDAPARINUX 2.5 MG/0.5 ML SYRINGE SUBCUT SCH (08:40)
[2020-07-12] MEDS: FAMOTIDINE 20 MG/2 ML VIAL IV SCH ×2 (08:40→21:40)
[2020-07-12] MEDS: INSULIN GLARGINE 100 UNIT/ML SUBCUT SCH ×2 (08:40→21:38)
[2020-07-12] MEDS: POTASSIUM CHLORIDE RIDER 10 MEQ in PREMIX 1 EACH IV PRN (11:06)
[2020-07-12] MEDS: SODIUM BICARB IV SCH ×2 (11:40→21:45)
[2020-07-12] MEDS: STERILE WATER IV SCH ×2 (11:40→21:45)
[2020-07-12] MEDS: AZITHROMYCIN INJ 500 MG in SODIUM CHLORIDE 0.9% 250 ML IV SCH (13:26)
[2020-07-12] MEDS: ALBUTEROL/IPRATROPIUM 3 ML NEB RESP TX SCH ×2 (13:59→19:37)
[2020-07-12] MEDS: ARFORMOTEROL 15 MCG/2 ML NEB RESP TX SCH ×2 (13:59→19:37)
[2020-07-12] MEDS: DOCUSATE SODIUM 100 MG/10 ML UDCUP PO SCH ×2 (14:06→21:34)
[2020-07-12] MEDS: POLYETHYLENE GLYCOL POWDER 17 GM PACK PO SCH (14:06)
[2020-07-12] MEDS: cefTRIAXone 1,000 MG in SYRINGE 1 EACH IV SCH (17:30)
[2020-07-13] MEDS: INSULIN REGULAR 100 UNIT/ML SUBCUT SCH ×4 (00:06→17:53)
[2020-07-13] MEDS: ALBUMIN 25% 25 GM in PREMIX 1 EACH IV SCH ×3 (01:09→16:20)
[2020-07-13] MEDS: ALBUTEROL/IPRATROPIUM 3 ML NEB RESP TX SCH ×4 (01:55→18:58)
[2020-07-13 04:38] LABS: ABG Base Excess 7.4 MMOL/L (-2.5-2.5); ABG HCO3 30.9 MMOL/L (20-26); ABG Oxygen Saturation 80.2 % (95-100); ABG PCO2 41.4 MM HG (35-48); ABG PH 7.488 (7.35-7.45); ABG PO2 45.7 MM HG (80-95); ABG TCO2 29.3 MMOL/L (23-27); Allen Test Positive; Pt O2 Delivery Device Ventilator
[2020-07-13] MEDS: metroNIDAZOLE INJ 500 MG in PREMIX 1 EACH IV SCH (04:42)
[2020-07-13 05:02] LABS: ABG Base Excess 6.3 MMOL/L (-2.5-2.5); ABG Oxygen Saturation 88.4 % (95-100); ABG PCO2 39.6 MM HG (35-48); ABG PH 7.497 (7.35-7.45); ABG PO2 56.8 MM HG (80-95); ABG TCO2 31.2 MMOL/L (23-27)
[2020-07-13 06:20] LABS: Calcium 8.8 MG/DL (8.5-10.1); Osmolality,Calculated 297.3 MOS/KG (273-304)
[2020-07-13 06:21] LABS: Basophils % 0.3 % (0.0-0.8); Eosinophils % 0.2 % (0.00-10.9); Hematocrit 23.6 VOL% (35.7-47.0); Hemoglobin 7.8 GM/DL (12.0-16.0); Immature Granulocytes % 2.4 %; Immature Granulocytes Absolute 0.22 #; Lymphocytes # 0.9 10*3/uL (1.4-4.0); Lymphocytes % 9.9 % (21.3-54.2); Mean Corpuscular HGB Conc 33.1 GM/DL (32-36); Mean Corpuscular Volume 80.5 FL (87-102); Monocytes % 1.8 % (1.7-12.7); NRBC # 0.09 10*3/uL; Neutrophils % 85.4 % (38.7-73.9); Platelet Count 48 T/CUMM (130-400); Red Blood Count 2.93 MC/CUMM (3.8-5.5); Red Cell Distribution Width 18.2 % (9.3-17.3)
[2020-07-13 06:23] LABS: Albumin 2.2 G/DL (3.4-5.0); Bilirubin,Total 3.8 MG/DL (0.2-1.0); Calcium 8.3 MG/DL (8.5-10.1); Osmolality,Calculated 297.3 MOS/KG (273-304); Total Protein 4.8 G/DL (6.4-8.3)
[2020-07-13 06:42] LABS: Potassium 2.5 MMOL/L (3.5-5.1)
[2020-07-13 06:48] LABS: Potassium 2.5 MMOL/L (3.5-5.1)
[2020-07-13 06:56] LABS: Band Neutrophils 3 % (0-10); Lymphocytes 3 % (20-55); Platelet Estimate Decreased; Polychromasia Slight; Segmented Neutrophils 85 % (50-85); Total Cells Counted 100
[2020-07-13 06:57] LABS: Hypochromasia 2+; Microcytosis 1+
[2020-07-13] MEDS: POTASSIUM CHLORIDE RIDER 20 MEQ in PREMIX 1 EACH IV PRN ×4 (06:58→23:28)
[2020-07-13] MEDS: STERILE WATER IV SCH ×2 (07:45→17:51)
[2020-07-13] MEDS: SODIUM BICARB IV SCH ×2 (07:45→17:51)
[2020-07-13] MEDS: ARFORMOTEROL 15 MCG/2 ML NEB RESP TX SCH ×2 (07:50→18:58)
[2020-07-13] MEDS ORDERED: ATROPINE 1 MG/10 ML SYRINGE IV ONE (08:14)
[2020-07-13] MEDS: FONDAPARINUX 2.5 MG/0.5 ML SYRINGE SUBCUT SCH (08:43)
[2020-07-13] MEDS: FAMOTIDINE 20 MG/2 ML VIAL IV SCH ×2 (08:43→21:04)
[2020-07-13] MEDS: INSULIN GLARGINE 100 UNIT/ML SUBCUT SCH ×2 (08:43→21:05)
[2020-07-13] MEDS: DOCUSATE SODIUM 100 MG/10 ML UDCUP PO SCH ×2 (08:43→21:04)
[2020-07-13] MEDS: POLYETHYLENE GLYCOL POWDER 17 GM PACK PO SCH (08:43)
[2020-07-13] MEDS: LEVOFLOXACIN INJ 750 MG in PREMIX 1 EACH IV SCH (09:48)
[2020-07-13] MEDS: MEROPENEM 500 MG in SODIUM CHLORIDE 0.9% 100 ML IV SCH ×3 (11:16→23:28)
[2020-07-13] MEDS: methylPREDNISolone SOD SUC 40 MG/1 ML VIAL IV SCH (13:15)
[2020-07-13] MEDS ORDERED: VANCOMYCIN INJ 1,250 MG in SODIUM CHLORIDE 0.9% 250 ML IV ONE (16:00)
[2020-07-13] MEDS ORDERED: ATROPINE 1 MG/10 ML SYRINGE ONE (20:41)
[2020-07-14] MEDS: INSULIN REGULAR 100 UNIT/ML SUBCUT SCH ×4 (00:13→17:12)
[2020-07-14] MEDS: methylPREDNISolone SOD SUC 40 MG/1 ML VIAL IV SCH ×2 (00:14→12:22)
[2020-07-14] MEDS: ALBUMIN 25% 25 GM in PREMIX 1 EACH IV SCH (00:15)
[2020-07-14] MEDS: ALBUTEROL/IPRATROPIUM 3 ML NEB RESP TX SCH ×4 (01:11→19:40)
[2020-07-14] MEDS: POTASSIUM CHLORIDE RIDER 20 MEQ in PREMIX 1 EACH IV PRN ×2 (01:33→07:06)
[2020-07-14] MEDS: STERILE WATER IV SCH (03:51)
[2020-07-14] MEDS: SODIUM BICARB IV SCH (03:51)
[2020-07-14 04:33] LABS: ABG Base Excess 1.9 MMOL/L (-2.5-2.5); ABG HCO3 26.1 MMOL/L (20-26); ABG PCO2 40.7 MM HG (35-48); ABG TCO2 24.6 MMOL/L (23-27); Allen Test Positive; Pt O2 Delivery Device Ventilator
[2020-07-14 05:26] LABS: Basophils # 0.1 10*3/uL (0.0-0.2); Basophils % 0.5 % (0.0-0.8); Hematocrit 24.5 VOL% (35.7-47.0); Hemoglobin 7.8 GM/DL (12.0-16.0); Immature Granulocytes Absolute 0.21 #; Lymphocytes # 0.9 10*3/uL (1.4-4.0); Lymphocytes % 8.2 % (21.3-54.2); Mean Corpuscular HGB Conc 31.8 GM/DL (32-36); Mean Corpuscular Volume 81.7 FL (87-102); Monocytes % 1.8 % (1.7-12.7); Neutrophils % 87.5 % (38.7-73.9); Red Cell Distribution Width 18.6 % (9.3-17.3); White Blood Count 10.4 T/CUMM (4-12)
[2020-07-14 05:34] LABS: Platelet Count 51 T/CUMM (130-400)
[2020-07-14 05:51] LABS: Calcium 8.2 MG/DL (8.5-10.1); Osmolality,Calculated 290.3 MOS/KG (273-304); Potassium 3.5 MMOL/L (3.5-5.1)
[2020-07-14] MEDS: MEROPENEM 500 MG in SODIUM CHLORIDE 0.9% 100 ML IV SCH ×3 (06:32→17:11)
[2020-07-14] MEDS: ARFORMOTEROL 15 MCG/2 ML NEB RESP TX SCH ×2 (08:10→19:40)
[2020-07-14] MEDS: DOCUSATE SODIUM 100 MG/10 ML UDCUP PO SCH ×2 (08:12→21:05)
[2020-07-14] MEDS: FONDAPARINUX 2.5 MG/0.5 ML SYRINGE SUBCUT SCH (08:12)
[2020-07-14] MEDS: INSULIN GLARGINE 100 UNIT/ML SUBCUT SCH ×2 (08:13→21:05)
[2020-07-14] MEDS: FAMOTIDINE 20 MG/2 ML VIAL IV SCH ×2 (08:13→21:06)
[2020-07-14] MEDS: POLYETHYLENE GLYCOL POWDER 17 GM PACK PO SCH (08:13)
[2020-07-14] MEDS ORDERED: FUROSEMIDE 40 MG/4 ML VIAL IV ONE (08:34)
[2020-07-14 08:48] LABS: Band Neutrophils 4 % (0-10); Hypochromasia 2+; Lymphocytes 7 % (20-55); Metamyelocytes 5 %; Myelocytes 1 %; Platelet Estimate Decreased; Segmented Neutrophils 81 % (50-85); Total Cells Counted 100
[2020-07-14] MEDS: LEVOFLOXACIN INJ 750 MG in PREMIX 1 EACH IV SCH (09:32)
[2020-07-14 13:29] LABS: ABG Base Excess 3.7 MMOL/L (-2.5-2.5); ABG HCO3 27.7 MMOL/L (20-26); ABG Oxygen Saturation 94.5 % (95-100); ABG PCO2 30.6 MM HG (35-48); ABG PH 7.536 (7.35-7.45); ABG PO2 65.9 MM HG (80-95); ABG TCO2 23.8 MMOL/L (23-27)
[2020-07-14] MEDS: DEXMEDETOMIDINE 200 MCG in SODIUM CHLORIDE 0.9% 48 ML IV PRN ×2 (14:57→21:06)
[2020-07-15] MEDS: methylPREDNISolone SOD SUC 40 MG/1 ML VIAL IV SCH ×2 (00:01→13:10)
[2020-07-15] MEDS: ALBUTEROL/IPRATROPIUM 3 ML NEB RESP TX SCH ×4 (01:06→19:07)
[2020-07-15] MEDS: DEXMEDETOMIDINE 200 MCG in SODIUM CHLORIDE 0.9% 48 ML IV PRN ×3 (04:11→14:07)
[2020-07-15 05:27] LABS: ABG Base Excess 7.2 MMOL/L (-2.5-2.5); ABG HCO3 31.1 MMOL/L (20-26); ABG Oxygen Saturation 98.6 % (95-100); ABG PCO2 37.3 MM HG (35-48); ABG PH 7.521 (7.35-7.45); ABG TCO2 27.9 MMOL/L (23-27); Allen Test Positive; Pt O2 Delivery Device Ventilator
[2020-07-15 05:49] LABS: Basophils # 0.1 10*3/uL (0.0-0.2); Basophils % 0.6 % (0.0-0.8); Hematocrit 27.1 VOL% (35.7-47.0); Hemoglobin 9.2 GM/DL (12.0-16.0); Immature Granulocytes % 6.2 %; Immature Granulocytes Absolute 0.93 #; Lymphocytes % 6.4 % (21.3-54.2); Mean Corpuscular HGB Conc 33.9 GM/DL (32-36); Mean Corpuscular Volume 77.2 FL (87-102); NRBC # 0.12 10*3/uL; Neutrophils % 84.8 % (38.7-73.9); Platelet Count 69 T/CUMM (130-400); Red Blood Count 3.51 MC/CUMM (3.8-5.5); Red Cell Distribution Width 18.1 % (9.3-17.3)
[2020-07-15 06:03] LABS: Calcium 8.6 MG/DL (8.5-10.1); Osmolality,Calculated 304.6 MOS/KG (273-304); Potassium 3.2 MMOL/L (3.5-5.1)
[2020-07-15 06:20] LABS: Band Neutrophils 4 % (0-10); Hypochromasia 1+; Lymphocytes 8 % (20-55); Microcytosis 1+; Nucleated Red Blood Cells 1 (0-5); Platelet Estimate Decreased; Segmented Neutrophils 87 % (50-85); Total Cells Counted 100
[2020-07-15] MEDS: INSULIN REGULAR 100 UNIT/ML SUBCUT SCH ×4 (06:35→17:50)
[2020-07-15] MEDS: MEROPENEM 500 MG in SODIUM CHLORIDE 0.9% 100 ML IV SCH ×5 (06:35→23:36)
[2020-07-15] MEDS: ARFORMOTEROL 15 MCG/2 ML NEB RESP TX SCH ×2 (07:23→19:07)
[2020-07-15] MEDS: FAMOTIDINE 20 MG/2 ML VIAL IV SCH ×2 (08:51→21:20)
[2020-07-15] MEDS: FONDAPARINUX 2.5 MG/0.5 ML SYRINGE SUBCUT SCH (08:56)
[2020-07-15] MEDS: INSULIN GLARGINE 100 UNIT/ML SUBCUT SCH ×2 (08:58→21:19)
[2020-07-15] MEDS: POLYETHYLENE GLYCOL POWDER 17 GM PACK PO SCH (08:58)
[2020-07-15] MEDS: LEVOFLOXACIN INJ 750 MG in PREMIX 1 EACH IV SCH (09:07)
[2020-07-15] MEDS: DOCUSATE SODIUM 100 MG/10 ML UDCUP PO SCH ×2 (09:37→21:19)
[2020-07-15] MEDS: RIFAMPIN INJ 600 MG in SODIUM CHLORIDE 0.9% 100 ML IV SCH (10:46)
[2020-07-15] MEDS: POTASSIUM CHLORIDE RIDER 20 MEQ in PREMIX 1 EACH IV PRN ×3 (10:52→21:23)
[2020-07-15] MEDS ORDERED: VANCOMYCIN INJ 1,250 MG in SODIUM CHLORIDE 0.9% 250 ML IV ONE (12:30)
[2020-07-15 13:45] LABS: Mycoplasma pneumoniae Ab, IgG Negative (Negative); Mycoplasma pneumoniae Ab, IgM Negative (Negative)
[2020-07-15] MEDS: DEXMEDETOMIDINE 400 MCG in SODIUM CHLORIDE 0.9% 96 ML IV PRN (19:38)
[2020-07-15] MEDS: POTASSIUM CHLORIDE RIDER 10 MEQ in PREMIX 1 EACH IV PRN (23:37)
[2020-07-16] MEDS: ALBUTEROL/IPRATROPIUM 3 ML NEB RESP TX SCH ×4 (00:13→18:40)
[2020-07-16] MEDS: methylPREDNISolone SOD SUC 40 MG/1 ML VIAL IV SCH ×2 (00:18→13:17)
[2020-07-16] MEDS: INSULIN REGULAR 100 UNIT/ML SUBCUT SCH ×4 (00:18→18:06)
[2020-07-16 03:00] LABS: ABG Base Excess 4.4 MMOL/L (-2.5-2.5); ABG PCO2 32.8 MM HG (35-48); ABG PH 7.533 (7.35-7.45); ABG PO2 68.8 MM HG (80-95)
[2020-07-16 04:31] LABS: Basophils # 0.1 10*3/uL (0.0-0.2); Basophils % 0.4 % (0.0-0.8); Hemoglobin 9.5 GM/DL (12.0-16.0); Immature Granulocytes % 5.9 %; Immature Granulocytes Absolute 1.02 #; Lymphocytes # 0.9 10*3/uL (1.4-4.0); Lymphocytes % 5.1 % (21.3-54.2); Mean Corpuscular HGB Conc 33.9 GM/DL (32-36); Mean Corpuscular Volume 78.4 FL (87-102); Monocytes % 2.8 % (1.7-12.7); Neutrophils % 85.8 % (38.7-73.9); Red Blood Count 3.57 MC/CUMM (3.8-5.5); Red Cell Distribution Width 18.6 % (9.3-17.3); White Blood Count 17.4 T/CUMM (4-12)
[2020-07-16 04:32] LABS: Platelet Count 80 T/CUMM (130-400)
[2020-07-16 04:50] LABS: Calcium 8.4 MG/DL (8.5-10.1); Osmolality,Calculated 301.6 MOS/KG (273-304)
[2020-07-16 04:51] LABS: Band Neutrophils 1 % (0-10); Lymphocytes 5 % (20-55); Platelet Estimate Decreased; Segmented Neutrophils 90 % (50-85); Total Cells Counted 100
[2020-07-16 04:52] LABS: Hypochromasia 1+; Microcytosis 1+
[2020-07-16] MEDS: DEXMEDETOMIDINE 400 MCG in SODIUM CHLORIDE 0.9% 96 ML IV PRN ×2 (05:35→20:30)
[2020-07-16] MEDS: MEROPENEM 500 MG in SODIUM CHLORIDE 0.9% 100 ML IV SCH ×3 (06:09→18:06)
[2020-07-16] MEDS: ARFORMOTEROL 15 MCG/2 ML NEB RESP TX SCH ×2 (07:19→18:40)
[2020-07-16] MEDS: FONDAPARINUX 2.5 MG/0.5 ML SYRINGE SUBCUT SCH (08:19)
[2020-07-16] MEDS: INSULIN GLARGINE 100 UNIT/ML SUBCUT SCH ×2 (08:19→21:16)
[2020-07-16] MEDS: FAMOTIDINE 20 MG/2 ML VIAL IV SCH ×2 (08:19→21:15)
[2020-07-16] MEDS: DOCUSATE SODIUM 100 MG/10 ML UDCUP PO SCH ×2 (08:20→21:15)
[2020-07-16] MEDS: POLYETHYLENE GLYCOL POWDER 17 GM PACK PO SCH (08:20)
[2020-07-16] MEDS: RIFAMPIN INJ 600 MG in SODIUM CHLORIDE 0.9% 100 ML IV SCH (11:54)
[2020-07-16] MEDS: DEXMEDETOMIDINE 200 MCG in SODIUM CHLORIDE 0.9% 48 ML IV PRN (14:00)
[2020-07-17] MEDS: MEROPENEM 500 MG in SODIUM CHLORIDE 0.9% 100 ML IV SCH ×4 (00:13→18:23)
[2020-07-17] MEDS: methylPREDNISolone SOD SUC 40 MG/1 ML VIAL IV SCH ×2 (00:14→12:15)
[2020-07-17] MEDS: INSULIN REGULAR 100 UNIT/ML SUBCUT SCH ×4 (00:14→18:20)
[2020-07-17] MEDS: ALBUTEROL/IPRATROPIUM 3 ML NEB RESP TX SCH ×4 (01:31→19:55)
[2020-07-17 02:56] LABS: ABG Base Excess 3.7 MMOL/L (-2.5-2.5); ABG HCO3 26.6 MMOL/L (20-26); ABG Oxygen Saturation 95.2 % (95-100); ABG PCO2 33.5 MM HG (35-48); ABG PH 7.518 (7.35-7.45); ABG PO2 77.9 MM HG (80-95); ABG TCO2 27.6 MMOL/L (23-27)
[2020-07-17] MEDS: DEXMEDETOMIDINE 400 MCG in SODIUM CHLORIDE 0.9% 96 ML IV PRN ×3 (03:46→18:24)
[2020-07-17] MEDS ORDERED: FUROSEMIDE 40 MG/4 ML VIAL IV ONE (06:57)
[2020-07-17] MEDS: ARFORMOTEROL 15 MCG/2 ML NEB RESP TX SCH ×2 (07:01→19:55)
[2020-07-17] MEDS: FONDAPARINUX 2.5 MG/0.5 ML SYRINGE SUBCUT SCH (09:47)
[2020-07-17] MEDS: INSULIN GLARGINE 100 UNIT/ML SUBCUT SCH ×2 (09:48→20:44)
[2020-07-17] MEDS: POLYETHYLENE GLYCOL POWDER 17 GM PACK PO SCH (09:48)
[2020-07-17] MEDS: DOCUSATE SODIUM 100 MG/10 ML UDCUP PO SCH ×2 (09:48→20:44)
[2020-07-17] MEDS: FAMOTIDINE 20 MG/2 ML VIAL IV SCH ×2 (09:49→20:43)
[2020-07-17] MEDS: VANCOMYCIN INJ 1,250 MG in SODIUM CHLORIDE 0.9% 250 ML IV SCH (09:52)
[2020-07-17] MEDS: RIFAMPIN INJ 600 MG in SODIUM CHLORIDE 0.9% 100 ML IV SCH (11:36)
[2020-07-18] MEDS: MEROPENEM 500 MG in SODIUM CHLORIDE 0.9% 100 ML IV SCH ×4 (00:31→18:23)
[2020-07-18] MEDS: INSULIN REGULAR 100 UNIT/ML SUBCUT SCH ×4 (00:31→18:20)
[2020-07-18] MEDS: ALBUTEROL/IPRATROPIUM 3 ML NEB RESP TX SCH ×4 (01:08→19:00)
[2020-07-18] MEDS: methylPREDNISolone SOD SUC 40 MG/1 ML VIAL IV SCH ×2 (01:50→12:22)
[2020-07-18] MEDS: DEXMEDETOMIDINE 400 MCG in SODIUM CHLORIDE 0.9% 96 ML IV PRN ×2 (02:23→10:32)
[2020-07-18] MEDS: hydrALAZINE 20 MG/1 ML VIAL IV PRN (02:23)
[2020-07-18 04:31] LABS: ABG Base Excess 4.9 MMOL/L (-2.5-2.5); ABG HCO3 28.9 MMOL/L (20-26); ABG Oxygen Saturation 97.9 % (95-100); ABG PCO2 31.6 MM HG (35-48); ABG PH 7.542 (7.35-7.45); ABG PO2 98.2 MM HG (80-95); ABG TCO2 24.1 MMOL/L (23-27); Allen Test Positive; Pt O2 Delivery Device Ventilator
[2020-07-18 05:00] LABS: Basophils % 0.2 % (0.0-0.8); Eosinophils % 0.2 % (0.00-10.9); Hemoglobin 8.6 GM/DL (12.0-16.0); Immature Granulocytes % 5.5 %; Lymphocytes # 0.8 10*3/uL (1.4-4.0); Lymphocytes % 4.3 % (21.3-54.2); Mean Corpuscular HGB Conc 33.1 GM/DL (32-36); Mean Corpuscular Volume 78.5 FL (87-102); Monocytes % 3.6 % (1.7-12.7); NRBC # 0.03 10*3/uL; Neutrophils % 86.2 % (38.7-73.9); Platelet Count 107 T/CUMM (130-400); Red Blood Count 3.31 MC/CUMM (3.8-5.5); Red Cell Distribution Width 18.9 % (9.3-17.3); White Blood Count 18.3 T/CUMM (4-12)
[2020-07-18 05:29] LABS: Hypochromasia 1+; Lymphocytes 5 % (20-55); Microcytosis 1+; Platelet Estimate Decreased; Segmented Neutrophils 93 % (50-85); Total Cells Counted 100
[2020-07-18 05:50] LABS: Calcium 8.4 MG/DL (8.5-10.1); Osmolality,Calculated 300.6 MOS/KG (273-304); Potassium 3.7 MMOL/L (3.5-5.1)
[2020-07-18] MEDS ORDERED: POTASSIUM CHLORIDE 20 MEQ/15 ML UDCUP PER TUBE PRN (07:32)
[2020-07-18] MEDS: ARFORMOTEROL 15 MCG/2 ML NEB RESP TX SCH ×2 (07:50→19:00)
[2020-07-18] MEDS: DOCUSATE SODIUM 100 MG/10 ML UDCUP PO SCH ×2 (09:29→20:48)
[2020-07-18] MEDS: FAMOTIDINE 20 MG/2 ML VIAL IV SCH ×2 (09:30→20:49)
[2020-07-18] MEDS: INSULIN GLARGINE 100 UNIT/ML SUBCUT SCH ×2 (09:30→20:49)
[2020-07-18] MEDS: POLYETHYLENE GLYCOL POWDER 17 GM PACK PO SCH (09:30)
[2020-07-18] MEDS: FONDAPARINUX 2.5 MG/0.5 ML SYRINGE SUBCUT SCH (09:33)
[2020-07-18] MEDS: RIFAMPIN INJ 600 MG in SODIUM CHLORIDE 0.9% 100 ML IV SCH (10:14)
[2020-07-18] MEDS: FLUCONAZOLE 40 MG/ML 35 ML/BOTTLE PO SCH ×2 (12:17→20:49)
[2020-07-18] MEDS: ACETAMINOPHEN 325 MG TABLET PO PRN (12:21)
[2020-07-19] MEDS: INSULIN REGULAR 100 UNIT/ML SUBCUT SCH ×4 (00:40→18:30)
[2020-07-19] MEDS: MEROPENEM 500 MG in SODIUM CHLORIDE 0.9% 100 ML IV SCH ×4 (00:50→18:24)
[2020-07-19] MEDS: ALBUTEROL/IPRATROPIUM 3 ML NEB RESP TX SCH ×4 (00:52→18:53)
[2020-07-19] MEDS: DEXMEDETOMIDINE 400 MCG in SODIUM CHLORIDE 0.9% 96 ML IV PRN ×3 (01:28→21:40)
[2020-07-19] MEDS: methylPREDNISolone SOD SUC 40 MG/1 ML VIAL IV SCH ×2 (02:00→12:31)
[2020-07-19 04:27] LABS: ABG Base Excess 2.8 MMOL/L (-2.5-2.5); ABG Oxygen Saturation 97.7 % (95-100); ABG PCO2 34.4 MM HG (35-48); ABG PH 7.497 (7.35-7.45); ABG PO2 103.7 MM HG (80-95); ABG TCO2 27.1 MMOL/L (23-27); Allen Test Positive; Pt O2 Delivery Device Ventilator
[2020-07-19 05:20] LABS: Basophils % 0.1 % (0.0-0.8); Eosinophils % 0.1 % (0.00-10.9); Hematocrit 25.9 VOL% (35.7-47.0); Hemoglobin 8.3 GM/DL (12.0-16.0); Immature Granulocytes % 3.7 %; Immature Granulocytes Absolute 0.53 #; Lymphocytes # 0.6 10*3/uL (1.4-4.0); Lymphocytes % 4.4 % (21.3-54.2); Mean Corpuscular Volume 81.7 FL (87-102); Monocytes % 3.9 % (1.7-12.7); Neutrophils % 87.8 % (38.7-73.9); Platelet Count 117 T/CUMM (130-400); Red Blood Count 3.17 MC/CUMM (3.8-5.5); Red Cell Distribution Width 19.7 % (9.3-17.3); White Blood Count 14.5 T/CUMM (4-12)
[2020-07-19 06:00] LABS: Albumin 1.6 G/DL (3.4-5.0); Bilirubin,Total 0.9 MG/DL (0.2-1.0); Calcium 8.4 MG/DL (8.5-10.1); Osmolality,Calculated 293.1 MOS/KG (273-304); Potassium 4.3 MMOL/L (3.5-5.1); Total Protein 6.5 G/DL (6.4-8.3)
[2020-07-19 07:18] LABS: Anisocytosis 1+; Band Neutrophils 26 % (0-10); Lymphocytes 7 % (20-55); Metamyelocytes 1 %; Myelocytes 2 %; Platelet Estimate Adequate; Segmented Neutrophils 61 % (50-85); Total Cells Counted 100
[2020-07-19 07:19] LABS: Hypochromasia 1+
[2020-07-19] MEDS: ARFORMOTEROL 15 MCG/2 ML NEB RESP TX SCH ×2 (08:15→18:53)
[2020-07-19] MEDS: DOCUSATE SODIUM 100 MG/10 ML UDCUP PO SCH ×2 (09:46→21:46)
[2020-07-19] MEDS: FONDAPARINUX 2.5 MG/0.5 ML SYRINGE SUBCUT SCH (09:47)
[2020-07-19] MEDS: INSULIN GLARGINE 100 UNIT/ML SUBCUT SCH ×2 (09:48→21:46)
[2020-07-19] MEDS: POLYETHYLENE GLYCOL POWDER 17 GM PACK PO SCH (09:49)
[2020-07-19] MEDS: FAMOTIDINE 20 MG/2 ML VIAL IV SCH ×2 (09:50→21:46)
[2020-07-19] MEDS: VANCOMYCIN INJ 1,250 MG in SODIUM CHLORIDE 0.9% 250 ML IV SCH (10:13)
[2020-07-19] MEDS: FLUCONAZOLE 40 MG/ML 35 ML/BOTTLE PO SCH ×2 (11:15→21:46)
[2020-07-19] MEDS: RIFAMPIN INJ 600 MG in SODIUM CHLORIDE 0.9% 100 ML IV SCH (11:30)
[2020-07-19] MEDS: hydrALAZINE 20 MG/1 ML VIAL IV PRN (11:55)
[2020-07-19] MEDS: LOSARTAN 25 MG TABLET PO SCH ×2 (12:00→21:46)
[2020-07-20] MEDS: INSULIN REGULAR 100 UNIT/ML SUBCUT SCH ×4 (00:45→18:06)
[2020-07-20] MEDS: MEROPENEM 500 MG in SODIUM CHLORIDE 0.9% 100 ML IV SCH ×4 (00:50→18:06)
[2020-07-20] MEDS: ALBUTEROL/IPRATROPIUM 3 ML NEB RESP TX SCH ×4 (01:22→19:21)
[2020-07-20] MEDS: methylPREDNISolone SOD SUC 40 MG/1 ML VIAL IV SCH ×2 (02:05→13:09)
[2020-07-20 03:19] LABS: ABG Base Excess 4.1 MMOL/L (-2.5-2.5); ABG HCO3 28.1 MMOL/L (20-26); ABG Oxygen Saturation 99.4 % (95-100); ABG PCO2 36.9 MM HG (35-48); ABG PH 7.483 (7.35-7.45); ABG TCO2 25.7 MMOL/L (23-27); Allen Test Positive; Pt O2 Delivery Device Ventilator
[2020-07-20 05:32] LABS: Basophils % 0.2 % (0.0-0.8); Eosinophils % 0.1 % (0.00-10.9); Hematocrit 24.9 VOL% (35.7-47.0); Immature Granulocytes % 3.4 %; Immature Granulocytes Absolute 0.56 #; Lymphocytes # 0.6 10*3/uL (1.4-4.0); Lymphocytes % 3.5 % (21.3-54.2); Mean Corpuscular HGB Conc 32.1 GM/DL (32-36); Mean Corpuscular Volume 81.6 FL (87-102); Monocytes % 4.4 % (1.7-12.7); NRBC # 0.02 10*3/uL; Neutrophils % 88.4 % (38.7-73.9); Platelet Count 142 T/CUMM (130-400); Red Blood Count 3.05 MC/CUMM (3.8-5.5); Red Cell Distribution Width 19.7 % (9.3-17.3); White Blood Count 16.6 T/CUMM (4-12)
[2020-07-20 05:54] LABS: Albumin 1.5 G/DL (3.4-5.0); Bilirubin,Total 0.7 MG/DL (0.2-1.0); Calcium 8.4 MG/DL (8.5-10.1); Osmolality,Calculated 288.3 MOS/KG (273-304); Potassium 4.3 MMOL/L (3.5-5.1); Total Protein 6.3 G/DL (6.4-8.3)
[2020-07-20 06:27] LABS: Anisocytosis 1+; Band Neutrophils 2 % (0-10); Hypochromasia 2+; Lymphocytes 6 % (20-55); Macrocytosis 1+; Metamyelocytes 2 %; Platelet Estimate Adequate; Segmented Neutrophils 86 % (50-85); Target Cells 1+; Total Cells Counted 100
[2020-07-20] MEDS: ARFORMOTEROL 15 MCG/2 ML NEB RESP TX SCH ×2 (07:15→19:21)
[2020-07-20] MEDS: DEXMEDETOMIDINE 400 MCG in SODIUM CHLORIDE 0.9% 96 ML IV PRN ×2 (07:52→17:45)
[2020-07-20] MEDS ORDERED: FUROSEMIDE 40 MG/4 ML VIAL IV ONE (08:15)
[2020-07-20] MEDS: LOSARTAN 25 MG TABLET PO SCH ×2 (09:37→20:37)
[2020-07-20] MEDS: INSULIN GLARGINE 100 UNIT/ML SUBCUT SCH ×2 (09:37→20:37)
[2020-07-20] MEDS: FAMOTIDINE 20 MG/2 ML VIAL IV SCH ×2 (09:37→20:37)
[2020-07-20] MEDS: POLYETHYLENE GLYCOL POWDER 17 GM PACK PO SCH (09:37)
[2020-07-20] MEDS: DOCUSATE SODIUM 100 MG/10 ML UDCUP PO SCH ×2 (09:37→20:37)
[2020-07-20] MEDS: FONDAPARINUX 2.5 MG/0.5 ML SYRINGE SUBCUT SCH (09:38)
[2020-07-20] MEDS: FLUCONAZOLE 40 MG/ML 35 ML/BOTTLE PO SCH ×2 (09:38→20:37)
[2020-07-20] MEDS: RIFAMPIN INJ 600 MG in SODIUM CHLORIDE 0.9% 100 ML IV SCH (11:25)
[2020-07-21] MEDS: INSULIN REGULAR 100 UNIT/ML SUBCUT SCH ×4 (00:09→18:10)
[2020-07-21] MEDS: ALBUTEROL/IPRATROPIUM 3 ML NEB RESP TX SCH ×4 (00:32→19:38)
[2020-07-21] MEDS: methylPREDNISolone SOD SUC 40 MG/1 ML VIAL IV SCH ×2 (02:00→13:27)
[2020-07-21 04:31] LABS: ABG Base Excess 6.2 MMOL/L (-2.5-2.5); ABG HCO3 29.9 MMOL/L (20-26); ABG Oxygen Saturation 97.8 % (95-100); ABG PCO2 39.4 MM HG (35-48); ABG PH 7.498 (7.35-7.45); ABG PO2 100.3 MM HG (80-95); ABG TCO2 31.1 MMOL/L (23-27)
[2020-07-21] MEDS: DEXMEDETOMIDINE 400 MCG in SODIUM CHLORIDE 0.9% 96 ML IV PRN ×2 (05:15→15:49)
[2020-07-21 05:49] LABS: Basophils % 0.2 % (0.0-0.8); Eosinophils % 0.1 % (0.00-10.9); Hematocrit 25.7 VOL% (35.7-47.0); Hemoglobin 8.3 GM/DL (12.0-16.0); Immature Granulocytes Absolute 0.36 #; Lymphocytes # 0.6 10*3/uL (1.4-4.0); Lymphocytes % 3.2 % (21.3-54.2); Mean Corpuscular HGB Conc 32.3 GM/DL (32-36); Mean Corpuscular Volume 81.8 FL (87-102); Mean Platelet Volume 13.6 FL (9.6-12.0); Monocytes % 4.5 % (1.7-12.7); Platelet Count 167 T/CUMM (130-400); Red Blood Count 3.14 MC/CUMM (3.8-5.5); Red Cell Distribution Width 19.6 % (9.3-17.3); White Blood Count 17.6 T/CUMM (4-12)
[2020-07-21 06:11] LABS: Albumin 1.6 G/DL (3.4-5.0); Bilirubin,Total 0.8 MG/DL (0.2-1.0); Calcium 8.8 MG/DL (8.5-10.1); Osmolality,Calculated 287.4 MOS/KG (273-304); Potassium 4.2 MMOL/L (3.5-5.1); Total Protein 6.5 G/DL (6.4-8.3)
[2020-07-21 06:52] LABS: Band Neutrophils 2 % (0-10); Lymphocytes 5 % (20-55); Platelet Estimate Adequate; Segmented Neutrophils 92 % (50-85); Total Cells Counted 100
[2020-07-21 06:53] LABS: Hypochromasia 1+; Microcytosis 1+
[2020-07-21] MEDS: ARFORMOTEROL 15 MCG/2 ML NEB RESP TX SCH ×2 (07:18→19:38)
[2020-07-21] MEDS: FONDAPARINUX 2.5 MG/0.5 ML SYRINGE SUBCUT SCH (09:31)
[2020-07-21] MEDS: LOSARTAN 25 MG TABLET PO SCH ×2 (09:31→21:03)
[2020-07-21] MEDS: INSULIN GLARGINE 100 UNIT/ML SUBCUT SCH ×2 (09:32→21:03)
[2020-07-21] MEDS: POLYETHYLENE GLYCOL POWDER 17 GM PACK PO SCH (09:32)
[2020-07-21] MEDS: FAMOTIDINE 20 MG/2 ML VIAL IV SCH ×2 (09:38→21:03)
[2020-07-21] MEDS: VANCOMYCIN INJ 1,250 MG in SODIUM CHLORIDE 0.9% 250 ML IV SCH (09:40)
[2020-07-21] MEDS: DOCUSATE SODIUM 100 MG/10 ML UDCUP PO SCH ×2 (09:57→21:03)
[2020-07-21] MEDS: RIFAMPIN INJ 600 MG in SODIUM CHLORIDE 0.9% 100 ML IV SCH (12:19)
[2020-07-22] MEDS: INSULIN REGULAR 100 UNIT/ML SUBCUT SCH ×4 (00:20→17:21)
[2020-07-22] MEDS: ALBUTEROL/IPRATROPIUM 3 ML NEB RESP TX SCH ×4 (02:03→19:05)
[2020-07-22] MEDS: methylPREDNISolone SOD SUC 40 MG/1 ML VIAL IV SCH ×2 (02:06→12:08)
[2020-07-22] MEDS: DEXMEDETOMIDINE 400 MCG in SODIUM CHLORIDE 0.9% 96 ML IV PRN (02:13)
[2020-07-22 03:48] LABS: ABG Base Excess 6.3 MMOL/L (-2.5-2.5); ABG HCO3 30.2 MMOL/L (20-26); ABG Oxygen Saturation 99.4 % (95-100); ABG PCO2 39.7 MM HG (35-48); ABG PH 7.488 (7.35-7.45)
[2020-07-22 04:23] LABS: Basophils % 0.2 % (0.0-0.8); Eosinophils % 0.1 % (0.00-10.9); Hematocrit 25.4 VOL% (35.7-47.0); Hemoglobin 8.1 GM/DL (12.0-16.0); Immature Granulocytes % 1.8 %; Immature Granulocytes Absolute 0.33 #; Lymphocytes # 0.7 10*3/uL (1.4-4.0); Lymphocytes % 3.7 % (21.3-54.2); Mean Corpuscular HGB Conc 31.9 GM/DL (32-36); Mean Platelet Volume 13.7 FL (9.6-12.0); Monocytes % 5.5 % (1.7-12.7); Neutrophils % 88.7 % (38.7-73.9); Platelet Count 167 T/CUMM (130-400); Red Blood Count 3.06 MC/CUMM (3.8-5.5); Red Cell Distribution Width 19.6 % (9.3-17.3); White Blood Count 18.5 T/CUMM (4-12)
[2020-07-22 04:41] LABS: Albumin 1.8 G/DL (3.4-5.0); Bilirubin,Total 0.4 MG/DL (0.2-1.0); Calcium 8.5 MG/DL (8.5-10.1); Osmolality,Calculated 284.5 MOS/KG (273-304); Potassium 4.3 MMOL/L (3.5-5.1); Total Protein 6.5 G/DL (6.4-8.3)
[2020-07-22 05:09] LABS: Band Neutrophils 2 % (0-10); Lymphocytes 3 % (20-55); Platelet Estimate Normal; Segmented Neutrophils 90 % (50-85); Total Cells Counted 100
[2020-07-22] MEDS: ARFORMOTEROL 15 MCG/2 ML NEB RESP TX SCH ×2 (07:25→19:05)
[2020-07-22] MEDS: INSULIN GLARGINE 100 UNIT/ML SUBCUT SCH ×2 (08:28→20:08)
[2020-07-22] MEDS: POLYETHYLENE GLYCOL POWDER 17 GM PACK PO SCH (08:28)
[2020-07-22] MEDS: DOCUSATE SODIUM 100 MG/10 ML UDCUP PO SCH ×2 (08:28→20:08)
[2020-07-22] MEDS: FONDAPARINUX 2.5 MG/0.5 ML SYRINGE SUBCUT SCH (08:28)
[2020-07-22] MEDS: FAMOTIDINE 20 MG/2 ML VIAL IV SCH ×2 (08:28→20:08)
[2020-07-22] MEDS: LOSARTAN 25 MG TABLET PO SCH ×2 (08:29→20:13)
[2020-07-22] MEDS ORDERED: FONDAPARINUX 7.5 MG/0.6 ML SYRINGE SUBCUT ONE (13:36)
[2020-07-22] MEDS: cefTAZidime 2,000 MG in SYRINGE 1 EACH IV SCH ×2 (13:42→20:09)
[2020-07-22] MEDS: DEXMEDETOMIDINE 200 MCG in SODIUM CHLORIDE 0.9% 48 ML IV PRN ×2 (13:47→21:56)
[2020-07-22] MEDS: FUROSEMIDE 40 MG/4 ML VIAL IV SCH (13:52)
[2020-07-23] MEDS: methylPREDNISolone SOD SUC 40 MG/1 ML VIAL IV SCH ×2 (00:04→12:40)
[2020-07-23] MEDS: INSULIN REGULAR 100 UNIT/ML SUBCUT SCH ×4 (00:04→18:13)
[2020-07-23] MEDS: ALBUTEROL/IPRATROPIUM 3 ML NEB RESP TX SCH ×4 (01:16→19:39)
[2020-07-23 03:59] LABS: Basophils % 0.1 % (0.0-0.8); Hemoglobin 7.2 GM/DL (12.0-16.0); Immature Granulocytes % 1.8 %; Immature Granulocytes Absolute 0.36 #; Lymphocytes # 0.6 10*3/uL (1.4-4.0); Mean Corpuscular HGB Conc 31.3 GM/DL (32-36); Monocytes % 4.9 % (1.7-12.7); Neutrophils % 90.2 % (38.7-73.9); Platelet Count 217 T/CUMM (130-400); Red Blood Count 2.77 MC/CUMM (3.8-5.5); Red Cell Distribution Width 19.6 % (9.3-17.3); White Blood Count 20.1 T/CUMM (4-12)
[2020-07-23 04:16] LABS: Allen Test Positive; Pt O2 Delivery Device Ventilator
[2020-07-23 04:17] LABS: ABG Base Excess 5.2 MMOL/L (-2.5-2.5); ABG HCO3 29.2 MMOL/L (20-26); ABG Oxygen Saturation 99.8 % (95-100); ABG PCO2 41.4 MM HG (35-48); ABG PH 7.461 (7.35-7.45); ABG TCO2 27.4 MMOL/L (23-27)
[2020-07-23 04:24] LABS: Band Neutrophils 5 % (0-10); Hypochromasia 2+; Lymphocytes 1 % (20-55); Microcytosis 1+; Platelet Estimate Adequate; Segmented Neutrophils 93 % (50-85); Total Cells Counted 100
[2020-07-23 04:25] LABS: Calcium 8.5 MG/DL (8.5-10.1); Osmolality,Calculated 289.4 MOS/KG (273-304); Potassium 4.3 MMOL/L (3.5-5.1)
[2020-07-23] MEDS: cefTAZidime 2,000 MG in SYRINGE 1 EACH IV SCH ×3 (05:37→22:06)
[2020-07-23] MEDS: ARFORMOTEROL 15 MCG/2 ML NEB RESP TX SCH ×2 (07:13→19:39)
[2020-07-23] MEDS: DEXMEDETOMIDINE 200 MCG in SODIUM CHLORIDE 0.9% 48 ML IV PRN (07:56)
[2020-07-23] MEDS: FAMOTIDINE 20 MG/2 ML VIAL IV SCH ×2 (08:28→22:08)
[2020-07-23] MEDS: INSULIN GLARGINE 100 UNIT/ML SUBCUT SCH ×2 (08:28→22:08)
[2020-07-23] MEDS: DOCUSATE SODIUM 100 MG/10 ML UDCUP PO SCH ×2 (08:29→22:07)
[2020-07-23] MEDS: FUROSEMIDE 40 MG/4 ML VIAL IV SCH (08:29)
[2020-07-23] MEDS: LOSARTAN 25 MG TABLET PO SCH ×2 (08:29→22:08)
[2020-07-23] MEDS: POLYETHYLENE GLYCOL POWDER 17 GM PACK PO SCH (08:29)
[2020-07-23] MEDS ORDERED: FONDAPARINUX 2.5 MG/0.5 ML SYRINGE SUBCUT SCH (09:00)
[2020-07-23] MEDS: FONDAPARINUX 7.5 MG/0.6 ML SYRINGE SUBCUT SCH (10:01)
[2020-07-23] MEDS: VANCOMYCIN INJ 1,250 MG in SODIUM CHLORIDE 0.9% 250 ML IV SCH (10:32)
[2020-07-23] MEDS ORDERED: MORPHINE 4 MG/1 ML VIAL IV PRN (13:30)
[2020-07-23] MEDS ORDERED: LORazepam 2 MG/1 ML VIAL IV PRN (13:30)
[2020-07-24] MEDS: ALBUTEROL/IPRATROPIUM 3 ML NEB RESP TX SCH ×4 (00:10→18:39)
[2020-07-24] MEDS: INSULIN REGULAR 100 UNIT/ML SUBCUT SCH ×4 (00:25→18:31)
[2020-07-24] MEDS: methylPREDNISolone SOD SUC 40 MG/1 ML VIAL IV SCH ×2 (00:55→12:47)
[2020-07-24] MEDS: cefTAZidime 2,000 MG in SYRINGE 1 EACH IV SCH ×2 (04:30→14:23)
[2020-07-24] MEDS: ACETAMINOPHEN 325 MG TABLET PO PRN (05:42)
[2020-07-24] MEDS ORDERED: LEVOTHYROXINE 88 MCG TABLET PEG SCH (07:00)
[2020-07-24] MEDS: ARFORMOTEROL 15 MCG/2 ML NEB RESP TX SCH ×2 (07:48→18:39)
[2020-07-24] MEDS ORDERED: CHOLECALCIFEROL 1,000 UNIT TABLET PEG SCH (09:00)
[2020-07-24] MEDS: LOSARTAN 25 MG TABLET PO SCH (09:50)
[2020-07-24] MEDS: POLYETHYLENE GLYCOL POWDER 17 GM PACK PO SCH (09:50)
[2020-07-24] MEDS: DOCUSATE SODIUM 100 MG/10 ML UDCUP PO SCH (09:50)
[2020-07-24] MEDS: INSULIN GLARGINE 100 UNIT/ML SUBCUT SCH (09:57)
[2020-07-24] MEDS: FUROSEMIDE 40 MG/4 ML VIAL IV SCH (09:59)
[2020-07-24] MEDS: FAMOTIDINE 20 MG/2 ML VIAL IV SCH (10:04)
[2020-07-24] MEDS: FONDAPARINUX 7.5 MG/0.6 ML SYRINGE SUBCUT SCH (10:39)
[2020-07-24] MEDS ORDERED: METOPROLOL TARTRATE 25 MG TABLET PO ONE (10:52)
[2020-07-24 15:29] VITALS: BP 171/78
[2020-07-24] MEDS ORDERED: METOPROLOL TARTRATE 25 MG TABLET PO SCH (21:00)
== END 2020-07-24 18:48 | DRG 870 ==
LOC: EDBD → EDUNIT# → N.ED 03:47 → SUATTDRO 05:41 → N.EDINP 05:41 → N.ICU 18:43 → N.CVR 07-08 18:08 → N.TELEN 07-23 18:15
PROVIDERS: ADMIT Internal Medicine; ATTEND Internal Medicine